=== PATIENT | male | born 1945 | race Caucasian/White ===

== ENCOUNTER 2020-04-14 09:54 | Outpatient (REF) | payer SELFPAY ==
[2020-04-14 11:40] LABS: Estimated Average Glucose 126 mg/dL
[2020-04-14 12:11] LABS: Anion Gap 16 (12-20); Blood Urea Nitrogen 14 mg/dL (9-16); Carbon Dioxide 25 mmol/L (22-29); Chloride 103 mmol/L (96-108); Cholesterol 215 mg/dL; Estimated Glomerular Filt Rate > 60; Glucose Fasting 93 mg/dL (60-99); HDL Cholesterol 86 mg/dL; LDL Cholesterol Calculated 110 mg/dl; Potassium 4.1 mmol/L (3.3-5.1); Sodium 140 mmol/L (135-145); Triglycerides 98 mg/dL
== END 2020-04-14 09:55 | disposition home or self-care (01) ==
LOC: HO.HMGCLDS 09:54
PROVIDERS: PCP Internal Medicine; Visit Provider Internal Medicine
DX: I10 Essential (primary) hypertension (principal); R73.01 Impaired fasting glucose
CPT/HCPCS: 36415; 80048; 80061; 83036

== ENCOUNTER 2021-02-18 12:46 | Outpatient (REF) | payer SELFPAY ==
[2021-02-18 14:43] LABS: MANUAL DIFF FLAG NO
[2021-02-18 14:45] LABS: White Blood Count 7.3 X10*3/uL (4.8-10.8)
[2021-02-18 14:46] LABS: Basophils Percent Auto 0.4 % (0-2); Eosinophils Absolute Auto 0.1 X10*3/uL (0.0-0.4); Eosinophils Percent Auto 1.8 % (0-4); Hematocrit 52.4 % (42.0-52.0); Hemoglobin 17.2 g/dl (14.0-18.0); Imm Gran Abs Auto 0.02 X10*3/uL (0.00-0.03); Imm Gran Pct Auto 0.3 % (0.0-0.4); Lymphocytes Absolute Auto 1.9 X10*3/uL (1.2-4.9); Lymphocytes Percent Auto 26.4 % (20-40); Mean Corpuscular HGB Conc 32.8 g/dl (31.0-36.0); Mean Corpuscular Volume 100.4 fL (80.0-98.0); Mean Platelet Volume 10.4 fL (9.4-12.4); Monocytes Absolute Auto 0.5 X10*3/uL (0.1-1.2); Monocytes Percent Auto 6.6 % (2-11); Neutrophils Absolute Auto 4.7 x10*3/uL (2.0-8.3); Neutrophils Percent Auto 64.5 % (45-73); Platelet Count 163 X10*3/uL (160-400); Red Blood Count 5.22 X10*6/uL (4.60-5.80); Red Cell Distribution Width 13.7 % (11.0-16.0)
[2021-02-18 15:21] LABS: Alanine Aminotransferase 25 U/L (0-40); Albumin Level 4.4 g/dL (3.5-5.0); Alkaline Phosphatase 48 U/L (39-117); Anion Gap 16 (12-20); Aspartate Amino Transferase 20 U/L (5-37); Bilirubin Total 1.2 mg/dL (0.0-1.0); Blood Urea Nitrogen 11 mg/dL (9-16); Calcium 9.7 mg/dL (8.4-10.2); Carbon Dioxide 26 mmol/L (22-29); Chloride 103 mmol/L (96-108); Cholesterol 223 mg/dL; Estimated Glomerular Filt Rate > 60; Glucose Fasting 125 mg/dL (60-99); HDL Cholesterol 91 mg/dL; LDL Cholesterol Calculated 115 mg/dl; Potassium 3.8 mmol/L (3.3-5.1); Sodium 141 mmol/L (135-145); Total Protein 7.8 g/dL (6.5-8.0); Triglycerides 89 mg/dL
[2021-02-19 11:52] LABS: Free Prostate Spec Ag 1.9 ng/mL; Percent Free Prostate Spec Ag 38 % (calc) (>25)
== END 2021-02-18 12:47 | disposition home or self-care (01) ==
LOC: HO.HMGCLDS 12:46
PROVIDERS: PCP Internal Medicine; Visit Provider Internal Medicine
DX: Z12.5 Encounter for screening for malignant neoplasm of prostate (principal); F10.10 Alcohol abuse, uncomplicated; I10 Essential (primary) hypertension; J44.9 Chronic obstructive pulmonary disease, unspecified; R35.0 Frequency of micturition
CPT/HCPCS: 36415; 80053; 80061; 84153; 84154; 85025

== ENCOUNTER 2021-08-19 09:10 | Outpatient (REF) | payer SELFPAY ==
[2021-08-19 11:46] LABS: Alanine Aminotransferase 17 U/L (0-40); Anion Gap 13 (12-20); Aspartate Amino Transferase 16 U/L (5-37); Blood Urea Nitrogen 12 mg/dL (9-16); Calcium 9.1 mg/dL (8.4-10.2); Carbon Dioxide 29 mmol/L (22-29); Chloride 101 mmol/L (96-108); Estimated Glomerular Filt Rate > 60; Glucose Fasting 118 mg/dL (60-99); Potassium 4.3 mmol/L (3.3-5.1); Sodium 139 mmol/L (135-145)
== END 2021-08-19 09:11 | disposition home or self-care (01) ==
LOC: HO.HMGCLDS 09:10
PROVIDERS: PCP Internal Medicine; Visit Provider Internal Medicine
DX: I10 Essential (primary) hypertension (principal); J44.9 Chronic obstructive pulmonary disease, unspecified; F10.10 Alcohol abuse, uncomplicated
CPT/HCPCS: 36415; 80048; 84450; 84460

== ENCOUNTER 2022-02-25 07:18 | Outpatient (REF) | payer SELFPAY ==
[2022-02-25 11:51] LABS: Estimated Average Glucose 114 mg/dL; Hemoglobin A1c % 5.6 %
[2022-02-25 12:10] LABS: Alanine Aminotransferase 14 U/L (0-40); Anion Gap 12 (12-20); Aspartate Amino Transferase 14 U/L (5-37); Blood Urea Nitrogen 11 mg/dL (9-16); Calcium 9.2 mg/dL (8.4-10.2); Carbon Dioxide 30 mmol/L (22-29); Chloride 100 mmol/L (96-108); Cholesterol 190 mg/dL; Estimated Glomerular Filt Rate > 60; Glucose Fasting 109 mg/dL (60-99); HDL Cholesterol 85 mg/dL; LDL Cholesterol Calculated 86 mg/dl; Potassium 4.1 mmol/L (3.3-5.1); Sodium 138 mmol/L (135-145); Triglycerides 97 mg/dL
[2022-02-25 12:17] LABS: Vitamin D 25-OH Total 7.4 ng/mL (>30)
[2022-02-25 12:40] LABS: Folate 8.8 ng/mL (> or = 4.0); Vitamin B12 272 pg/mL (200-900)
== END 2022-02-25 07:19 | disposition home or self-care (01) ==
LOC: HO.HMGCLDS 07:18
PROVIDERS: PCP Internal Medicine; Visit Provider Internal Medicine
DX: D75.89 Other specified diseases of blood and blood-forming organs (principal); F10.10 Alcohol abuse, uncomplicated; J44.9 Chronic obstructive pulmonary disease, unspecified; I10 Essential (primary) hypertension
CPT/HCPCS: 36415; 80048; 80061; 82306; 82607; 82746; 83036; 84450; 84460

== ENCOUNTER 2023-02-24 09:19 | Outpatient (REF) | payer SELFPAY ==
[2023-02-24 11:20] LABS: MANUAL DIFF FLAG NO
[2023-02-24 11:28] LABS: Basophils Percent Auto 0.4 % (0-2); Eosinophils Absolute Auto 0.3 X10*3/uL (0.0-0.4); Eosinophils Percent Auto 3.9 % (0-4); Hematocrit 45.8 % (42.0-52.0); Hemoglobin 15.3 g/dl (14.0-18.0); Imm Gran Abs Auto 0.02 X10*3/uL (0.00-0.03); Imm Gran Pct Auto 0.3 % (0.0-0.4); Lymphocytes Absolute Auto 2.1 X10*3/uL (1.2-4.9); Mean Corpuscular HGB Conc 33.4 g/dl (31.0-36.0); Mean Corpuscular Hemoglobin 32.7 pg (27.0-33.0); Mean Corpuscular Volume 97.9 fL (80.0-98.0); Mean Platelet Volume 9.7 fL (9.4-12.4); Monocytes Absolute Auto 0.5 X10*3/uL (0.1-1.2); Monocytes Percent Auto 7.6 % (2-11); Neutrophils Absolute Auto 3.9 x10*3/uL (2.0-8.3); Neutrophils Percent Auto 56.8 % (45-73); Platelet Count 213 X10*3/uL (160-400); Red Blood Count 4.68 X10*6/uL (4.60-5.80); Red Cell Distribution Width 13.3 % (11.0-16.0); White Blood Count 6.9 X10*3/uL (4.8-10.8)
[2023-02-24 11:47] LABS: Alanine Aminotransferase 11 U/L (0-40); Anion Gap 13 (12-20); Aspartate Amino Transferase 16 U/L (5-37); Blood Urea Nitrogen 16 mg/dL (9-16); Calcium 9.6 mg/dL (8.4-10.2); Carbon Dioxide 31 mmol/L (22-29); Chloride 101 mmol/L (96-108); Cholesterol 208 mg/dL (<200); Estimated Glomerular Filt Rate 47; Glucose Fasting 110 mg/dL (60-99); HDL Cholesterol 95 mg/dL (>40); LDL Cholesterol Calculated 93 mg/dL (<100); Potassium 4.1 mmol/L (3.3-5.1); Sodium 141 mmol/L (135-145); Triglycerides 100 mg/dL (<150)
[2023-02-24 12:03] LABS: Vitamin D 25-OH Total 41.3 ng/mL (>30)
== END 2023-02-24 09:20 | disposition home or self-care (01) ==
LOC: HO.HMGCLDS 09:19
PROVIDERS: PCP Internal Medicine; Visit Provider Internal Medicine
DX: Z12.5 Encounter for screening for malignant neoplasm of prostate (principal); E55.9 Vitamin D deficiency, unspecified; D75.89 Other specified diseases of blood and blood-forming organs; I10 Essential (primary) hypertension; J44.9 Chronic obstructive pulmonary disease, unspecified; R97.20 Elevated prostate specific antigen [PSA]
CPT/HCPCS: 36415; 80048; 80061; 82306; 82607; 82746; 83036; 84153; 84450; 84460; 85025

== ENCOUNTER 2023-03-02 11:51 | Outpatient (AMB) | payer SELFPAY ==
[2023-03-02 12:17] VITALS: BP 128/82; PULSE 96; O2SAT 96; BMI 22.6
--- NOTE | 2023-03-02 12:17 | A.OFFPC_ITS ---
Vital Signs 03/02/23 12:17 Height 5 ft 9 in Weight 153 lb 4 oz BMI 22.6 BP 128/82 Blood Pressure Location Rt brachial Position Sitting Pulse 96 Pulse Source Pulse Oximeter Pulse Oximetry (%) 96 Oxygen Delivery Method Room Air Intake Visit Reasons: 1 yr follow up Intake Note: Pt is here to follow up for lab results Allergies pollen Adverse Reaction (Uncoded 03/02/23 12:29) Sneezing Medication List - Last Reconciled 03/02/23 by Shannan Noe MD albuterol sulfate 90 mcg/actuation (ProAir RespiClick) 2 inhalations inhalation Q6H PRN aspirin (Adult Low Dose Aspirin) 81 mg PO DAILY budesonide-formoterol 160-4.5 mcg/actuation (Symbicort) 1 puff inhalation ONCE [cannabis orally; ] lisinopril 20 mg PO DAILY nicotine (polacrilex) (Nicorette) 4 mg buccal Q2H Tobacco use date assessed: 03/02/23 Fall risk assessment: 2 + Falls in past year (5) Last assessed Fall Risk: 03/02/23 Dental Screening Dental Screen Date: 03/02/23 Did you have a dental visit in the last 12 months?: No Did you have a dental problem in the last 6 months where you did not have access to dental care?: No Was dental information given to patient?: No HPI 1 yr follow up HPI Details 77-year-old male with hypertension, COPD , here today for follow-up. He is currently taking lisinopril 20 mg daily with blood pressure stable controlled on present treatment. He is also on Symbicort for his COPD . Patient's continues to refuse all vaccination offered, and declines any colon cancer screening. He has had several falls this past year, first when he was weed whacking and tripped on an extension cord, when he slipped on his porch stairs when it was raining, the other when he was on his yardd and stepped on uneven ground, and while he was inside the house and turned quickly and lost his balance. He drinks alcoholic beverages on a regular basis usually drinks 3 rosales [place] with 5% alcohol each, or 3 beer or 1 glass of zinfandel with his dinner. Admits to not drinking water much, and sometimes misses his meals. Had recent labs done which showed normal lipids, liver enzymes, vitamin-D, vitamin B12, folic acid level, and CBC, but serum creatinine elevated FOR[facility]LY [facility], [facility] Medical History (Updated 03/08/23 @ 15:58 by Shannan Noe MD) Frequent falls Elevated serum creatinine Right bundle branch block (RBBB) determined by electrocardiography Vitamin D deficiency Hx of smoking History of alcohol abuse Macrocytosis without anemia Elevated PSA COVID-19 vaccination refused Immunization refused Colonoscopy refused COPD (chronic obstructive pulmonary disease) Essential hypertension Surgical History Status post herniorrhaphy History of ankle surgery Family History Father HTN (hypertension) Diabetes mellitus with neuropathy Mother No problems noted. Sister No problems noted. Social History Housing: House Alcohol intake: current Alcohol intake frequency: 0-2 drinks per day Alcohol type: beer Patient Tobacco Use Status: Former Tobacco user Years Smoked: 40 yrs e-Cigarette/Vaping Use: Never Used Substance Use Type: Marijuana service: No Current occupational status: retired Cognitive needs: No Hearing needs: No Vision needs: Yes Questionnaire PHQ-9 Over the last 2 weeks, how often have you been bothered by any of the following problems? 1. Little interest or pleasure in doing things: not at all 2. Feeling down, depressed, or hopeless: not at all 3. Trouble falling or staying asleep, or sleeping too much: not at all 4. Feeling tired or having little energy: not at all 5. Poor appetite or overeating: several days 6. Feeling bad about yourself - or that you are a failure or have let yourself or your family down: not at all 7. Trouble concentrating on things, such as reading the newspaper or watching television: not at all 8. Moving or speaking so slowly that other people could have noticed. Or the op posite - being so fidgety or restless that you have been moving around a lot more than usual: not at all 9. Thoughts that you would be better off or of hurting yourself in some way: not at all Total score: 1 Depression Screening Interpretation: Negative Depression Screening Done: Yes [id number] - PHQ-9 Billing: Yes Source: Developed by Drs. Carroll Silverman, Hanane Choudhary, Te Stauffer and colleagues, with an educational oscar from [employer]. Thrive Questionnaire Date Thrive assessed: 03/02/23 I am a: Patient What is your living situation today?: I have a steady place to live Within the past 12 months, did the food you bought not last and you didn't have the money to get more?: Never true Within the past 12 months, did you worry whether your food would run out before you got money to buy more?: Never true Do you have trouble paying for medicines?: No Do you have trouble getting transportation to medical appointments?: No Do you have trouble paying your heating and electricity bill?: No Do you have trouble taking care of your child, family member or friend?: No Do you have trouble with day-to-day activities such as bathing, preparing meals, shopping, managing finances, etc.?: No Are you currently unemployed and looking for a job?: No Are you interested in more education?: No AUDIT C Alcohol Use Questionnaire (AUDIT-C) 1. How often do you have a drink containing alcohol?: 4 or more times a week 2. How many drinks containing alcohol do you have on a typical day when you are drinking?: 3 or 4 3. How often do you have six or more drinks on one occasion?: Never Total Score: 5 Score Reviewed/Action Taken: Yes (Patient advised strongly to cut back or stop drinking alcoholic beverage) ROXANA-7 AMB Questionnaire ROXANA-7 Date ROXANA - 7 assessed: 03/02/23 Feeling nervous, anxious, or on edge: 0 = Not at all Not being able to stop or control worryin = Not at all Worrying too much about different things: 0 = Not at all Trouble relaxin = Not at all Being so restless that it is hard to sit still: 0 = Not at all Becoming easily annoyed or irritable: 0 = Not at all Feeling afraid as if something awful might happen: 0 = Not at all Total ROXANA-7 score (0-4 normal; 5-9 mild; 10-14 moderate; 15-21 severe): 0 Source: Developed by Hanane HadleyW. Kenrick, Te Stauffer and colleagues, with an educational oscar from [employer]. ROXANA-7 Assessment Billing ROXANA-7 Assessment Tool: ROXANA-7 Assessment 61174 Review of Systems Const Denies difficulty sleeping, Denies fatigue, Denies fever(s), Denies headache(s), Denies lethargy and Denies malaise Eyes Reports blurry vision ENT Denies dizziness, Denies headache(s), Denies nasal congestion, Denies post nasal drip and Denies sinus pain Card Denies chest pain, Denies rapid heart rate, Denies irregular heart rhythm, Denies lightheadedness and Denies dyspnea on exertion Resp Denies cough and Denies dyspnea on exertion GI Denies abdominal pain, Denies melena, Denies bloating, Denies change in bowel habits, Denies heartburn and Denies vomiting Denies hematuria, Denies difficulty urinating, Denies dysuria, Denies urinary hesitancy and Denies urinary incontinence Musc Details: nocturnal leg cramps Neuro Denies dizziness and Denies headache(s) Psych Reports no additional complaints Endo Denies fatigue Adams/Lymph Reports no additional complaints Aller/Immun Reports no additional complaints Physical exam (Primary Care) Vital Signs: Last Vital Signs Pulse 96 03/02/23 12:17 BP 128/82 03/02/23 12:17 Pulse Ox 96 03/02/23 12:17 Oxygen Delivery Method Room Air 03/02/23 12:17 BMI result Body Mass Index 22.6 Tobacco/Smoking Status: Tobacco use Status Tobacco use date assessed 03/02/23 03/02/23 12:24 Patient Tobacco Use Status Former Tobacco user 03/02/23 12:24 e-Cigarette/Vaping Use Never Used 03/02/23 12:24 Depression Screening Interpretation: Negative Thrive Assessment: Date of Thrive Assessment Date Thrive assessed 03/02/21 03/02/23 12:24 Const Other: Alert oriented x3, no acute cardiorespiratory distress noted Orientation/consciousness: patient oriented x3 HENMT Head: Yes normocephalic Ears: hearing grossly normal bilaterally General nose exam: Normal external nose present and No nasal discharge present Face and sinus: Yes sinuses nontender and Yes face symmetric Mouth: Normal oral and palatal mucosa present and moist mucous membranes Eyes General: appearance normal, both eyes and all related structures Neck Neck: Yes full ROM, Yes no lymphadenopathy, Yes no meningeal signs and Yes supple Resp Effort & Inspection: normal respiratory effort and able to speak in complete sentences Auscultation: clear to auscultation bilaterally Cardio Other: S1-S2 present regular rate and rhythm GI Inspection: Yes normal to inspection Palpation (GI): Soft to palpation, nontender, no guarding and no masses Auscultation: normal bowel sounds Skin Other: Dry skin Neuro General: patient oriented x3, gait normal, moves all extremities, Normal light touch and pain sensation, no meningeal signs, no focal motor deficits and CN's II-XI intact bilaterally Extrem General: Yes full ROM, Yes no joint enlargement, Yes no calf tenderness and Yes normal gait Psych Appearance: disheveled Mental Status: mental status grossly normal Speech and movement: Normal speech and movement present Affect: normal affect Attitude: cooperative Thought process: Normal thought process present Results Reviewed Results Reviewed: Name: Tavares Ahmadi Age/Sex: 77/M : 1945 Unit#: [id number] Attend Dr: Shannan Noe MD Re02/24/23 Status: DEP REF Location: [facility] Disch: SPEC : [id number] JAKE: 02/24/23 STATUS: COMP REQ : [id number] RECD: 02/24/23-[address]: Shannan Noe MD COMP: 02/24/23 ENTERED: 02/24/[address] [facility] DR: ORDERED: CBC Auto Diff Test Result Flag Reference Site WBC 6.9 4.8-10.8 X10*3/uL RBC 4.68 4.60-5.80 X10*6/uL HGB 15.3 14.0-18.0 g/dl HCT 45.8 42.0-52.0 % MCV 97.9 80.0-98.0 fL MCH 32.7 27.0-33.0 pg MCHC 33.4 31.0-36.0 g/dl RDW 13.3 11.0-16.0 % PLT 213 # 160-400 X10*3/uL MPV 9.7 9.4-12.4 fL Neut Pct Auto 56.8 45-73 % ImGran Pct Auto 0.3 0.0-0.4 % Lymp Pct Auto 31.0 20-40 % [place] Pct Auto 7.6 2-11 % Eos Pct Auto 3.9 0-4 % Baso Pct Auto 0.4 0-2 % NRBC Pct Auto 0.0 0.0-0.2 /100WBC ANC Neut Abs # 3.9 2.0-8.3 x10*3/uL ImGran Abs Auto 0.02 0.00-0.03 X10*3/uL Lymph Abs Auto 2.1 1.2-4.9 X10*3/uL [place] Abs Auto 0.5 0.1-1.2 X10*3/uL Eos Abs Auto 0.3 0.0-0.4 X10*3/uL Baso Abs Auto 0.0 0.0-0.2 X10*3/uL NRBC Abs Auto 0.000 0.0-0.012 X10*3/uL RUN: 03/02/23 1226 PAGE 1 [facility] [address] [place] [id number] Personnel Records Clerk: Ernesto Moffett M.D. Specimen Inquiry Name: Tavares Ahmadi Age/Sex: 77/M : 1945 Unit#: [id number] Attend Dr: Shannan Noe MD Re02/24/23 Status: DEP REF Location: [facility] Disch: SPEC : [id number] JAKE: 02/24/23 STATUS: COMP REQ : [id number] RECD: 02/24/[address]: Shannan Noe MD COMP: 02/24/23 ENTERED: 02/24/[address]: ORDERED: Met Prof Fast, AST, ALT, Lipid Panel, Vitamin D 25-OH Test Result Flag Reference Site Sodium 141 135-145 mmol/L Potassium 4.1 3.3-5.1 mmol/L CL 101 96-108 mmol/L CO2 31 H 22-29 mmol/L Gap 13 12-20 BUN 16 9-16 mg/dL Creat 1.46 H 0.5-1.4 mg/dL EGFR 47 NOTE: For -Serbian individuals, multiply the result by 1.210. Chronic Kidney Disease: Estimated GFR < 60 mL/min/1.73m2 Severe Kidney Disease: Estimated GFR < 15 mL/min/1.73m2 FBS 110 H 60-99 mg/dL A fasting glucose from 100-125 mg/dl is considered impaired (pre-diabetes). CA 9.6 8.4-10.2 mg/dL AST (GOT) 16 5-37 U/L ALT (GPT) 11 0-40 U/L Triglyceride 100 <150 mg/dL Desirable Triglyceride: less than 150 mg/dL Borderline High Triglyceride 150-199 mg/dL High Triglyceride: 200-499 mg/dL Very High Triglyceride: greater than or equal to 5OO mg/dL Cholesterol 208 H <200 mg/dL Desirable Cholesterol: less than 200 mg/dL Borderline High Cholesterol: 200-239 mg/dL High Cholesterol: greater than 239 mg/dL LDL Calculated 93 <100 mg/dL Desirable LDL: less than 100 mg/dL Near Optimal/Above Optimal LDL: 110-129 mg/dL Borderline High LDL: 130-159 mg/dL High LDL: 160-189 mg/dL Very High LDL: greater than or equal to 190 mg/dL HDL 95 >40 mg/dL Desirable HDL: greater than 40 mg/dL Note: This HDL assay may give artificially low results in patients with liver disease. Vit D 25-OH Tot 41.3 >30 ng/mL Health Based Reference Values* < 20 ng/mL Deficient 20-30 ng/mL Insufficient > 30 ng/mL Sufficient Laboratory Tests 02/24/23 09:25 Estimat Average Glucose 120 Hemoglobin A1c % 5.8 Laboratory Tests 02/24/23 09:25 Total PSA 2.59 Vitamin B12 278 Folate 7.8 Assessment and Plan Assessment & Plan (1) Essential hypertension: Code(s): I10 - Essential (primary) hypertension Plan: Blood pressure at goal of less than 130/80. Continue with 20 mg lisinopril daily. Reinforced importance of following a low sodium diet, getting regular exercise, and lowering stress levels. Strongly advised to cut back on his alcohol intake or stop drinking altogether (2) Right bundle branch block (RBBB) determined by electrocardiography: Code(s): I45.10 - Unspecified right bundle-branch block Plan: Referred to cardiology for further evaluation especially with history of frequent fall (3) Elevated serum creatinine: Code(s): R79.89 - Other specified abnormal findings of blood chemistry Plan: Nephrology consult ordered (4) COPD (chronic obstructive pulmonary disease): Code(s): J44.9 - Chronic obstructive pulmonary disease, unspecified Plan: Continue Symbicort, refused all vaccinations (5) Immunization refused: Comment: for flu , pneumonia vaccine Code(s): Z28.21 - Immunization not carried out because of patient refusal (6) Frequent falls: Code(s): R29.6 - Repeated falls Plan: Reviewed recent fasting lab results, and EKG results. Cardiology consult ordered Orders: Orders AMB EKG-In Office 03/02/23 I10 - Essential (primary) hypertension, Z91.81 - History of falling Referrals Nephrology Referral I10 - Essential (primary) hypertension, R79.89 - Other specified abnormal findings of blood chemistry Cardiology Referral I10 - Essential (primary) hypertension, I45.10 - Unspecified right bundle-branch block, R29.6 - Repeated falls Review Patient declined Colonoscopy: 03/02/23 Patient declined Pneumococcal Vaccine: 03/02/23 Flu Vaccine not done: patient reason Declined TDap/Td: 03/02/23 Coding Level of Care Code Est Pt Level 4 (70529) Diagnoses Essential hypertension I10 Right bundle branch block (RBBB) determined by electrocardiography I45.10 Elevated serum creatinine R79.89 COPD (chronic obstructive pulmonary disease) J44.9 Immunization refused Z28.21 Frequent falls R29.6 Additional Codes ROXANA-7 Assessment Billing - ROXANA-7 Assessment Tool: ROXANA-7 Assessment 39561 ([id number])
== END 2023-03-02 13:06 | disposition home or self-care (01) ==
PROVIDERS: Visit Provider Internal Medicine
DX: I10 Essential (primary) hypertension (principal); I45.10 Unspecified right bundle-branch block; R79.89 Other specified abnormal findings of blood chemistry; J44.9 Chronic obstructive pulmonary disease, unspecified; Z28.21 Immunization not carried out because of patient refusal; R29.6 Repeated falls
CPT/HCPCS: 99214

== ENCOUNTER 2023-03-22 11:42 | Outpatient (AMB) | payer SELFPAY ==
[2023-03-22 11:43] VITALS: BP 132/74; BMI 22.3
--- NOTE | 2023-03-22 11:43 | HO.NEPHOV_ITS ---
HPI HPI Comments History of Present Illness Details Elderly man with a h/o HTN referred for Elevated serum creatinine In Feb 2022, Creatinine was 1.1 and currently at 1.46 with eGFR of 47 ml/mt He has been on Lisinopril 20 mg QD h/o Significant alcohol intake for many years. Stopped about 20 days ago h/o Heavy smoking for 40 years; Quit 15 yrs ago DEnies any specific complaints today [facility] Medical History (Updated 03/22/23 @ 11:56 by Brad Jain MD) Frequent falls Elevated serum creatinine Right bundle branch block (RBBB) determined by electrocardiography Vitamin D deficiency Hx of smoking History of alcohol abuse Macrocytosis without anemia Elevated PSA COVID-19 vaccination refused Immunization refused Colonoscopy refused COPD (chronic obstructive pulmonary disease) Essential hypertension Surgical History Status post herniorrhaphy History of ankle surgery Family History Father HTN (hypertension) Diabetes mellitus with neuropathy Mother No problems noted. Sister No problems noted. Social History Housing: House Alcohol intake: current Alcohol intake frequency: 0-2 drinks per day Alcohol type: beer Patient Tobacco Use Status: Former Tobacco user Years Smoked: 40 yrs e-Cigarette/Vaping Use: Never Used Substance Use Type: Marijuana service: No Current occupational status: retired Cognitive needs: No Hearing needs: No Vision needs: Yes Vital Signs 03/22/23 11:43 Height 5 ft 9 in Weight 151 lb BMI 22.3 BP 132/74 Blood Pressure Location Lt brachial Position Sitting Physical Exam Vital Signs: Last Vital Signs BP 132/74 03/22/23 11:43 BMI result Body Mass Index 22.3 Const General: comfortable Nutritional Appearance: well nourished Orientation/consciousness: patient oriented x3 HEENT Head: No normal to inspection Mouth: moist mucous membranes Neck Neck: Yes supple and Yes no JVD Resp Auscultation: clear to auscultation bilaterally, no rales and rub present Cardio Jugular venous distension: no JVD Palpation: no palpable S3 and no palpable S4 Heart sounds: no rubs GI Palpation (GI): Soft to palpation and nontender Percussion: No Fluid wave present General: Yes no CVA tenderness Back/Spine/Pelvis Back: no CVA tenderness Thoracic/Lumbar Spine: kyphosis Skin General skin exam: no rashes or lesions noted and other (Acro cyanosis of right LITTLE Finger) Neuro General: patient oriented x3 Extrem General: Yes no pedal edema and No clubbing Assessment & Plan Assessment & Plan (1) CKD (chronic kidney disease) stage 3, GFR 30-59 ml/min: Code(s): N18.30 - Chronic kidney disease, stage 3 unspecified (2) Essential hypertension: Code(s): I10 - Essential (primary) hypertension Plan Elderly man with elevated serum creatinine It is unclear if he had CKD or HIREN At this time based on the availabel lab data NO urine studies available. DDx includes prerenal causes including volume depletion/hypoperfusion Post renal causes - obstructive uropathy needes to be ruled out Intrinsic renal disease needs to be rule out as well Work up as out lined below including renal sonogram and urine studies If he has significant proteinuria/hematuria, will proceed with further serological investigations In the mean time Increase PO fludi intake Low salt diet Avoid nephrotoxins including NSAIDS Maintain BP < 130/80 and avoid hypotension Orders: Orders Complete Blood Count Auto Diff 3 Weeks I10 - Essential (primary) hypertension, N18.30 - Chronic kidney disease, stage 3 unspecified Creatinine Urine 3 Weeks I10 - Essential (primary) hypertension, N18.30 - Chronic kidney disease, stage 3 unspecified Total Protein Urine Random 3 Weeks I10 - Essential (primary) hypertension, N18.30 - Chronic kidney disease, stage 3 unspecified Comprehensive Met. Panel 3 Weeks I10 - Essential (primary) hypertension, N18.30 - Chronic kidney disease, stage 3 unspecified UA and rflx microscopic 3 Weeks I10 - Essential (primary) hypertension, N18.30 - Chronic kidney disease, stage 3 unspecified Uric Acid 3 Weeks I10 - Essential (primary) hypertension, N18.30 - Chronic kidney disease, stage 3 unspecified Parathyroid Hormone Intact 3 Weeks I10 - Essential (primary) hypertension, N18.30 - Chronic kidney disease, stage 3 unspecified US renal BI 3 Weeks I10 - Essential (primary) hypertension, N18.30 - Chronic kidney disease, stage 3 unspecified Coding Level of Care Code New Pt Level 4 (12225) Diagnoses CKD (chronic kidney disease) stage 3, GFR 30-59 ml/min N18.30 Essential hypertension I10 Results Reviewed Nephrology Results: Hgb 15.3 g/dl (14.0-18.0) 02/24/23 WBC 6.9 X10*3/uL (4.8-10.8) 02/24/23 Plt Count 213 X10*3/uL (160-400) 02/24/23 Sodium 141 mmol/L (135-145) 02/24/23 Potassium 4.1 mmol/L (3.3-5.1) 02/24/23 Chloride 101 mmol/L (96-108) 02/24/23 Carbon Dioxide 31 mmol/L (22-29) H 02/24/23 BUN 16 mg/dL (9-16) 02/24/23 Creatinine 1.46 mg/dL (0.5-1.4) H 02/24/23 Calcium 9.6 mg/dL (8.4-10.2) 02/24/23
== END 2023-03-22 12:06 | disposition home or self-care (01) ==
PROVIDERS: PCP Internal Medicine; Visit Provider Internal Medicine Hypertension Specialist
DX: N18.30 Chronic kidney disease, stage 3 unspecified (principal); I10 Essential (primary) hypertension
CPT/HCPCS: 99204

== ENCOUNTER → 2023-03-22 11:42 | Outpatient (BNVA) | payer SELFPAY | PROVIDERS: PCP Internal Medicine; Visit Provider Internal Medicine Hypertension Specialist | DX: I12.9 Hypertensive chronic kidney disease with stage 1 through stage 4 chronic kidney disease, or unspecified chronic kidney disease (principal); N18.30 Chronic kidney disease, stage 3 unspecified; Z87.891 Personal history of nicotine dependence | CPT/HCPCS: 99202 ==

== ENCOUNTER 2023-04-11 10:18 | Outpatient (REF) | payer SELFPAY ==
[2023-04-11 13:40] LABS: MANUAL DIFF FLAG NO
[2023-04-11 13:50] LABS: Basophils Percent Auto 0.5 % (0-2); Eosinophils Absolute Auto 0.4 X10*3/uL (0.0-0.4); Eosinophils Percent Auto 4.6 % (0-4); Hematocrit 40.7 % (42.0-52.0); Hemoglobin 13.3 g/dl (14.0-18.0); Imm Gran Abs Auto 0.03 X10*3/uL (0.00-0.03); Imm Gran Pct Auto 0.4 % (0.0-0.4); Lymphocytes Percent Auto 24.4 % (20-40); Mean Corpuscular HGB Conc 32.7 g/dl (31.0-36.0); Mean Corpuscular Volume 94.9 fL (80.0-98.0); Mean Platelet Volume 9.9 fL (9.4-12.4); Monocytes Absolute Auto 0.8 X10*3/uL (0.1-1.2); Monocytes Percent Auto 9.5 % (2-11); Neutrophils Absolute Auto 4.9 x10*3/uL (2.0-8.3); Neutrophils Percent Auto 60.6 % (45-73); Platelet Count 191 X10*3/uL (160-400); Red Blood Count 4.29 X10*6/uL (4.60-5.80); Red Cell Distribution Width 12.8 % (11.0-16.0)
[2023-04-11 14:06] LABS: Uric Acid 5.1 mg/dL (3.4-7.0)
[2023-04-11 14:17] LABS: Appearance Urine Clear; Color Urine Dark Yellow; Glucose Urine UA Negative (Negative); Leukocyte Esterase Urine Negative (Negative); Nitrite Urine Negative (Negative); PH 5.5 (5.0-9.0); Specific Gravity - Urine >= 1.030 (1.005-1.025); UMIC TRIGGER UA YES; Urine Blood Negative (Negative); Urine Ketones Trace mg/dL (Negative); Urine Protein 30 (1+) mg/dL (Neg-Trace)
[2023-04-11 14:24] LABS: Creatinine Urine 202.41 mg/dL; Total Protein Urine Random 39 mg/dL (<12)
[2023-04-11 14:36] LABS: Bacteria Urine None Seen (None Seen); Calcium Oxalate Crystals Urine Present; Hyaline Casts Urine 0-2 /LPF (0-2); RBC Urine 0-2 /HPF (0-2); WBC Urine 0-5 /HPF (0-5)
[2023-04-11 15:23] LABS: Parathyroid Hormone Intact 39.1 pg/mL (8.7-77.1)
== END 2023-04-11 10:19 | disposition home or self-care (01) ==
LOC: HO.HMGCLDS 10:18
PROVIDERS: PCP Internal Medicine; Referring Provider Internal Medicine Hypertension Specialist; Visit Provider Internal Medicine
DX: I12.9 Hypertensive chronic kidney disease with stage 1 through stage 4 chronic kidney disease, or unspecified chronic kidney disease (principal); N18.30 Chronic kidney disease, stage 3 unspecified
CPT/HCPCS: 36415; 81001; 81003; 82570; 83970; 84156; 84550; 85025

== ENCOUNTER 2023-04-14 10:40 | Outpatient (AMB) | payer SELFPAY ==
--- NOTE | 2023-04-14 10:50 | MHC.PC.OV ---
Vital Signs 04/14/23 10:51 04/14/23 14:51 Height 5 ft 9 in Weight 148 lb BMI 21.9 BP 138/78 Blood Pressure Location Lt brachial Position Sitting Pulse 115 H 106 H Pulse Source Pulse Oximeter Palpation Pulse Oximetry (%) 96 Oxygen Delivery Method Room Air Intake Visit Reasons: anxiety Intake Note: Pt is here today c/o panic attacks and Rt grt toe pain Allergies pollen Allergy (Uncoded 04/14/23 11:20) Sneezing Medication List - Last Reconciled 04/14/23 by Shannan Noe MD albuterol sulfate 90 mcg/actuation (ProAir RespiClick) 2 inhalations inhalation Q6H PRN aspirin (Adult Low Dose Aspirin) 81 mg PO DAILY budesonide-formoterol 160-4.5 mcg/actuation (Symbicort) 1 puff inhalation ONCE [cannabis orally; ] lisinopril 20 mg PO DAILY nicotine (polacrilex) (Nicorette) 4 mg buccal Q2H Tobacco use date assessed: 04/14/23 Fall risk assessment: No Falls in past year Last assessed Fall Risk: 04/14/23 Dental Screening Dental Screen Date: 04/27/23 Did you have a dental visit in the last 12 months?: No Was dental information given to patient?: No HPI HPI Comments History of Present Illness Details 77-year-old male with history of hypertension, here today complaining of intermittent episodes of panic attacks. Patient states that he would get an acute episodes of shortness of breath and palpitation, with no accompanying chest pain, or lightheadedness, and resolves spontaneously after several minutes. This has been happening now on and off for the last several days. Denies any triggers or precipitating factors. He states that he has quit drinking alcohol, approximately 3 weeks ago, has been drinking plenty of water as instructed by his car sales consultant who he recently saw. He also complains of acute throbbing pain in his left big toe last night, which resolve spontaneously . States that he get occasional leg cramps mosty at night. [facility] Medical History History of alcohol use disorder Acquired deformity of toenail Decreased pedal pulses Leg cramps Pain of foot and toes Elevated fasting glucose Hyperlipidemia Frequent falls Elevated serum creatinine Right bundle branch block (RBBB) determined by electrocardiography Vitamin D deficiency Hx of smoking History of alcohol abuse Macrocytosis without anemia Elevated PSA COVID-19 vaccination refused Immunization refused Colonoscopy refused COPD (chronic obstructive pulmonary disease) Essential hypertension Surgical History Status post herniorrhaphy History of ankle surgery Family History Father HTN (hypertension) Diabetes mellitus with neuropathy Mother No problems noted. Sister No problems noted. Social History Housing: House Alcohol intake: current Alcohol intake frequency: 0-2 drinks per day Alcohol type: beer Patient Tobacco Use Status: Former Tobacco user Years Smoked: 40 yrs e-Cigarette/Vaping Use: Never Used Substance Use Type: Marijuana service: No Current occupational status: retired Cognitive needs: No Hearing needs: No Vision needs: Yes Questionnaire PHQ-9 Over the last 2 weeks, how often have you been bothered by any of the following problems? 1. Little interest or pleasure in doing things: not at all 2. Feeling down, depressed, or hopeless: not at all 3. Trouble falling or staying asleep, or sleeping too much: several days 4. Feeling tired or having little energy: not at all 5. Poor appetite or overeating: several days 6. Feeling bad about yourself - or that you are a failure or have let yourself or your family down: not at all 7. Trouble concentrating on things, such as reading the newspaper or watching television: not at all 8. Moving or speaking so slowly that other people could have noticed. Or the opposite - being so fidgety or restless that you have been moving around a lot more than usual: not at all 9. Thoughts that you would be better off or of hurting yourself in some way: not at all Total score: 2 Depression Screening Interpretation: Negative Depression Screening Done: Yes 71881 - PHQ-9 Billing: Yes Source: Developed by Drs. Carroll Silverman, Hanane Choudhary, Te Stauffer and colleagues, with an educational oscar from [employer]. Thrive Questionnaire Date Thrive assessed: 04/14/23 I am a: Patient What is your living situation today?: I have a steady place to live Within the past 12 months, did the food you bought not last and you didn't have the money to get more?: Never true Within the past 12 months, did you worry whether your food would run out before you got money to buy more?: Never true Do you have trouble paying for medicines?: No Do you have trouble getting transportation to medical appointments?: No Do you have trouble paying your heating and electricity bill?: No Do you have trouble taking care of your child, family member or friend?: No Do you have trouble with day-to-day activities such as bathing, preparing meals, shopping, managing finances, etc.?: No Are you currently unemployed and looking for a job?: No Are you interested in more education?: No THRIVE Score: 0 AUDIT C Alcohol Use Questionnaire (AUDIT-C) 1. How often do you have a drink containing alcohol?: Never (Quit alcoholic drinks approximately 3 weeks ago) Total Score: 0 ROXANA-7 AMB Questionnaire ROXANA-7 Date ROXANA - 7 assessed: 04/14/23 Feeling nervous, anxious, or on edge: 0 = Not at all Not being able to stop or control worryin = Not at all Worrying too much about different things: 0 = Not at all Trouble relaxin = Not at all Being so restless that it is hard to sit still: 0 = Not at all Becoming easily annoyed or irritable: 1 = Several days Feeling afraid as if something awful might happen: 0 = Not at all Total ROXANA-7 score (0-4 normal; 5-9 mild; 10-14 moderate; 15-21 severe): 1 Source: Developed by Drs. Carroll Silverman, Hanane Choudhary, Te Stauffer and colleagues, with an educational oscar from [employer]. ROXANA-7 Assessment Billing ROXANA-7 Assessment Tool: ROXANA-7 Assessment 77450 Review of Systems Const Denies fever(s), Denies headache(s), Denies lethargy and Denies malaise Eyes Reports blurry vision ENT Denies dizziness, Denies headache(s), Denies nasal congestion, Denies post nasal drip and Denies sinus pain Card Reports no additional complaints Resp Denies cough GI Denies abdominal pain, Denies melena, Denies bloating, Denies change in bowel habits, Denies heartburn and Denies vomiting Denies hematuria, Denies difficulty urinating, Denies dysuria, Denies urinary hesitancy and Denies urinary incontinence Musc Details: nocturnal leg cramps Neuro Denies dizziness and Denies headache(s) Psych Reports no additional complaints Endo Reports no additional complaints Adams/Lymph Reports no additional complaints Aller/Immun Reports no additional complaints Physical exam (Primary Care) Vital Signs: Last Vital Signs Pulse 115 H 04/14/23 10:51 BP 138/78 04/14/23 10:51 Pulse Ox 96 04/14/23 10:51 Oxygen Delivery Method Room Air 04/14/23 10:51 BMI result Body Mass Index 21.9 Tobacco/Smoking Status: Tobacco use Status Tobacco use date assessed 04/14/23 04/14/23 10:52 Patient Tobacco Use Status Former Tobacco user 04/14/23 10:51 e-Cigarette/Vaping Use Never Used 04/14/23 10:51 PHQ-9: PHQ-9 Score PHQ-9: Total score 2 04/14/23 14:47 Depression Screening Interpretation: Negative Thrive Assessment: Date of Thrive Assessment Date Thrive assessed 04/14/23 04/14/23 10:58 Const General: cooperative, no acute distress, poor hygiene and tired appearing Nutritional Appearance: average body habitus Orientation/consciousness: patient oriented x3 [facility] Head: Yes normocephalic Ears: hearing grossly normal bilaterally General nose exam: Normal external nose present Face and sinus: Yes face symmetric Mouth: Normal oral and palatal mucosa present and moist mucous membranes Eyes General: appearance normal, both eyes and all related structures Neck Neck: Yes full ROM, Yes no lymphadenopathy, Yes no meningeal signs and Yes supple Resp Effort & Inspection: normal respiratory effort and able to speak in complete sentences Auscultation: clear to auscultation bilaterally Cardio Other: S1-S2 present , tachycardic Faint dorsalis pedis pulse and posterior tibial pulse bilateral GI Inspection: Yes normal to inspection Palpation (GI): Soft to palpation, nontender, no guarding and no masses Auscultation: normal bowel sounds Skin Other: Dry skin Nails: discolored, dystrophic and yellow and thickened (both feet) Neuro General: patient oriented x3, gait normal, moves all extremities, Normal light touch and pain sensation, no meningeal signs, no focal motor deficits and CN's II-XI intact bilaterally Extrem General: Yes full ROM, Yes no joint enlargement, Yes no calf tenderness and Yes normal gait Psych Appearance: disheveled Mental Status: mental status grossly normal Speech and movement: Normal speech and movement present Affect: normal affect Attitude: cooperative Thought process: Normal thought process present Assessment and Plan Assessment & Plan (1) Pain of foot and toes: Code(s): M79.673 - Pain in unspecified foot; M79.676 - Pain in unspecified toe(s) Plan: Will check SAURABH indices (2) Leg cramps: Code(s): R25.2 - Cramp and spasm Plan: Advised to start taking magnesium tablets as needed to 50 mg per tablet once a day. Continue staying well hydrated, continued avoidance of alcohol intake (3) Decreased pedal pulses: Code(s): R09.89 - Other specified symptoms and signs involving the circulatory and respiratory systems Plan: SAURABH index ordered (4) Acquired deformity of toenail: Code(s): L60.8 - Other nail disorders Plan: Referred to podiatry for further evaluation and management (5) Acute anxiety: Code(s): F41.9 - Anxiety disorder, unspecified Plan: Trial of hydroxyzine 10 mg per tablet to take 1 tablet 3 times a day as needed for acute episodes of anxiety. Call if no improvement Orders: Orders US SAURABH complete Today M79.673 - Pain in unspecified foot, M79.676 - Pain in unspecified toe(s), R09.89 - Other specified symptoms and signs involving the circulatory and respiratory systems, R25.2 - Cramp and spasm Referrals Podiatry Referral L60.8 - Other nail disorders Medications: New hydroxyzine HCl 10 mg PO TID PRN 30 tabs 0RF itching Coding Level of Care Code Est Pt Level 4 (30381) Diagnoses Pain of foot and toes M79.673; M79.676 Leg cramps R25.2 Decreased pedal pulses R09.89 Acquired deformity of toenail L60.8 Acute anxiety F41.9 Additional Codes ROXANA-7 Assessment Billing - ROXANA-7 Assessment Tool: ROXANA-7 Assessment 24590 ([id number])
[2023-04-14 10:51] VITALS: BP 138/78; PULSE 115; O2SAT 96; BMI 21.9
[2023-04-14 14:51] VITALS: PULSE 106
== END 2023-04-14 11:58 | disposition home or self-care (01) ==
PROVIDERS: PCP Internal Medicine; Visit Provider Internal Medicine
DX: M79.672 Pain in left foot (principal); M79.675 Pain in left toe(s); R25.2 Cramp and spasm; R09.89 Other specified symptoms and signs involving the circulatory and respiratory systems; L60.8 Other nail disorders; F41.9 Anxiety disorder, unspecified
CPT/HCPCS: 99214

== ENCOUNTER 2023-04-26 11:34 | Outpatient (AMB) | payer SELFPAY ==
--- NOTE | 2023-04-26 11:40 | HO.NEPHOV ---
HPI HPI Comments History of Present Illness Details Elderly man with a h/o HTN referred for Elevated serum creatinine In Feb 2022, Creatinine was 1.1 and currently at 1.46 with eGFR of 47 ml/mt He has been on Lisinopril 20 mg QD h/o Significant alcohol intake for many years. Stopped about 20 days ago h/o Heavy smoking for 40 years; Quit 15 yrs ago DEnies any specific complaints today 04/26/23 Has some cought nad runny nose Did not go for USG and blood test [facility] Medical History History of alcohol use disorder Acquired deformity of toenail Decreased pedal pulses Leg cramps Pain of foot and toes Elevated fasting glucose Hyperlipidemia Frequent falls Elevated serum creatinine Right bundle branch block (RBBB) determined by electrocardiography Vitamin D deficiency Hx of smoking History of alcohol abuse Macrocytosis without anemia Elevated PSA COVID-19 vaccination refused Immunization refused Colonoscopy refused COPD (chronic obstructive pulmonary disease) Essential hypertension Surgical History Status post herniorrhaphy History of ankle surgery Family History Father HTN (hypertension) Diabetes mellitus with neuropathy Mother No problems noted. Sister No problems noted. Social History Housing: House Alcohol intake: current Alcohol intake frequency: 0-2 drinks per day Alcohol type: beer Patient Tobacco Use Status: Former Tobacco user Years Smoked: 40 yrs e-Cigarette/Vaping Use: Never Used Substance Use Type: Marijuana service: No Current occupational status: retired Cognitive needs: No Hearing needs: No Vision needs: Yes Vital Signs 04/26/23 11:41 Height 5 ft 9 in Weight 143 lb BMI 21.1 BP 110/58 L Blood Pressure Location Rt brachial Position Sitting Pulse 108 H Pulse Source Pulse Oximeter Pulse Oximetry (%) 94 Oxygen Delivery Method Room Air Physical Exam Vital Signs: Last Vital Signs Pulse 108 H 04/26/23 11:41 BP 110/58 L 04/26/23 11:41 Pulse Ox 94 04/26/23 11:41 Oxygen Delivery Method Room Air 04/26/23 11:41 BMI result Body Mass Index 21.1 Const General: comfortable Nutritional Appearance: well nourished Orientation/consciousness: patient oriented x3 HEENT Head: No normal to inspection Mouth: moist mucous membranes Neck Neck: Yes supple and Yes no JVD Resp Auscultation: clear to auscultation bilaterally, no rales and rub present Cardio Jugular venous distension: no JVD Palpation: no palpable S3 and no palpable S4 Heart sounds: no rubs GI Palpation (GI): Soft to palpation and nontender Percussion: No Fluid wave present General: Yes no CVA tenderness Back/Spine/Pelvis Back: no CVA tenderness Thoracic/Lumbar Spine: kyphosis Skin General skin exam: no rashes or lesions noted and other (Acro cyanosis of right LITTLE Finger) Neuro General: patient oriented x3 Extrem General: Yes no pedal edema and No clubbing Assessment & Plan Assessment & Plan (1) CKD (chronic kidney disease) stage 3, GFR 30-59 ml/min: Code(s): N18.30 - Chronic kidney disease, stage 3 unspecified (2) Essential hypertension: Code(s): I10 - Essential (primary) hypertension Plan Elderly man with elevated serum creatinine It is unclear if he had CKD or HIREN At this time based on the availabel lab data NO urine studies available. DDx includes prerenal causes including volume depletion/hypoperfusion Post renal causes - obstructive uropathy needes to be ruled out Intrinsic renal disease needs to be rule out as well Work up as out lined below including renal sonogram and urine studies If he has significant proteinuria/hematuria, will proceed with further serological investigations Increase PO fluid Low salt diet Avoid nephrotoxins including NSAIDS Maintain BP < 130/80 and avoid hypotension Orders: Orders Complete Blood Count Auto Diff Today N18.30 - Chronic kidney disease, stage 3 unspecified Parathyroid Hormone Intact Today N18.30 - Chronic kidney disease, stage 3 unspecified Creatinine Urine Today N18.30 - Chronic kidney disease, stage 3 unspecified Comprehensive Met. Panel Today N18.30 - Chronic kidney disease, stage 3 unspecified, N18.9 - Chronic kidney disease, unspecified UA and rflx microscopic Today N18.30 - Chronic kidney disease, stage 3 unspecified Sodium Urine Random 2 Weeks N18.30 - Chronic kidney disease, stage 3 unspecified, N18.9 - Chronic kidney disease, unspecified Coding Level of Care Code Est Pt Level 4 (46097) Diagnoses CKD (chronic kidney disease) stage 3, GFR 30-59 ml/min N18.30 Essential hypertension I10 Results Reviewed Nephrology Results: Hgb 13.3 g/dl (14.0-18.0) L 04/11/23 WBC 8.0 X10*3/uL (4.8-10.8) 04/11/23 Plt Count 191 X10*3/uL (160-400) 04/11/23 Sodium 141 mmol/L (135-145) 02/24/23 Potassium 4.1 mmol/L (3.3-5.1) 02/24/23 Chloride 101 mmol/L (96-108) 02/24/23 Carbon Dioxide 31 mmol/L (22-29) H 02/24/23 BUN 16 mg/dL (9-16) 02/24/23 Creatinine 1.46 mg/dL (0.5-1.4) H 02/24/23 Calcium 9.6 mg/dL (8.4-10.2) 02/24/23 PTH Intact 39.1 pg/mL (8.7-77.1) 04/11/23 Urine Protein 30 (1+) mg/dL (Neg-Trace) H 04/11/23 Urine Creatinine 202.41 mg/dL 04/11/23
[2023-04-26 11:41] VITALS: BP 110/58; PULSE 108; O2SAT 94; BMI 21.1
== END 2023-04-26 12:00 | disposition home or self-care (01) ==
PROVIDERS: PCP Internal Medicine; Visit Provider Internal Medicine Hypertension Specialist
DX: N18.30 Chronic kidney disease, stage 3 unspecified (principal); I10 Essential (primary) hypertension
CPT/HCPCS: 99214

== ENCOUNTER → 2023-04-26 11:34 | Outpatient (BNVA) | payer SELFPAY | PROVIDERS: PCP Internal Medicine; Visit Provider Internal Medicine Hypertension Specialist | DX: I12.9 Hypertensive chronic kidney disease with stage 1 through stage 4 chronic kidney disease, or unspecified chronic kidney disease (principal); N18.30 Chronic kidney disease, stage 3 unspecified | CPT/HCPCS: 99212 ==

== ENCOUNTER 2023-05-02 13:42 | Outpatient (REF) | payer SELFPAY ==
--- NOTE | ~2023-05-02 | US_ITS ---
EXAMINATION: NONINVASIVE ASSESSMENT OF THE ARTERIES OF BOTH LOWER EXTREMITIES CLINICAL INFORMATION: Pain in foot. COMPARISON: None. TECHNIQUE: Segmental ankle pulse volume recording, pressure measurement at the ankle and ankle brachial indices were obtained of the lower extremity arterial system bilaterally. This study was performed at rest only. FINDINGS: a) AT REST: 1. The ankle-brachial indices are: Right 0.84 and left 0.67. >0.97-1.25 = normal - no significant arterial disease. 0.75-0.96 = mild peripheral arterial disease. 0.5-0.74 = moderate peripheral arterial disease. <0.50 = severe peripheral arterial disease. 2. Segmental pressure at ankle: 134 mmHg on the right and 106 mmHg on the left. 3. PVR waveform at ankle: Abnormal. US/US SAURABH complete IMPRESSION: Abnormal ankle brachial indices consistent with mild peripheral arterial disease on the right and moderate peripheral arterial disease on the left.
--- NOTE | ~2023-05-02 | US_ITS ---
EXAMINATION: US RETROPERITONEAL LIMITED (RENAL ONLY) CLINICAL INFORMATION: Chronic kidney disease, stage 3 unspecified. COMPARISON: None available. TECHNIQUE: Real-time imaging of the kidneys. FINDINGS: RIGHT KIDNEY: 9.6 x 5.5 x 5.0 cm (SAG x AP x TRV). There is limited visualization of the upper pole secondary to overlying bowel gas. The kidney is normal in size, contour, and echogenicity. Renal cortical thickness is normal. No calculi or focal parenchymal lesions. No hydronephrosis. LEFT KIDNEY: 11.1 x 4.9 x 4.2 cm (SAG x AP x TRV). The kidney is normal in size, contour, and echogenicity. Renal cortical thickness is normal. No calculi or focal parenchymal lesions. No hydronephrosis. US/US renal BI IMPRESSION: Unremarkable-appearing kidneys although the right upper pole was not visualized secondary to overlying bowel gas.
== END 2023-05-02 13:43 | disposition home or self-care (01) ==
LOC: HO.US 13:42
PROVIDERS: PCP Internal Medicine; Visit Provider Internal Medicine Hypertension Specialist
DX: I12.9 Hypertensive chronic kidney disease with stage 1 through stage 4 chronic kidney disease, or unspecified chronic kidney disease (principal); N18.30 Chronic kidney disease, stage 3 unspecified; R25.2 Cramp and spasm; R09.89 Other specified symptoms and signs involving the circulatory and respiratory systems
CPT/HCPCS: 76775; 93923

== ENCOUNTER 2023-05-27 08:25 | Outpatient (REF) | payer SELFPAY ==
[2023-05-27 10:39] LABS: MANUAL DIFF FLAG NO
[2023-05-27 10:51] LABS: Basophils Absolute Auto 0.1 X10*3/uL (0.0-0.2); Basophils Percent Auto 0.7 % (0-2); Eosinophils Absolute Auto 0.6 X10*3/uL (0.0-0.4); Hemoglobin 11.4 g/dl (14.0-18.0); Imm Gran Abs Auto 0.02 X10*3/uL (0.00-0.03); Imm Gran Pct Auto 0.3 % (0.0-0.4); Lymphocytes Absolute Auto 2.6 X10*3/uL (1.2-4.9); Lymphocytes Percent Auto 38.1 % (20-40); Mean Corpuscular HGB Conc 31.7 g/dl (31.0-36.0); Mean Corpuscular Hemoglobin 30.6 pg (27.0-33.0); Mean Corpuscular Volume 96.5 fL (80.0-98.0); Mean Platelet Volume 9.3 fL (9.4-12.4); Monocytes Absolute Auto 0.4 X10*3/uL (0.1-1.2); Monocytes Percent Auto 6.4 % (2-11); Neutrophils Absolute Auto 3.2 x10*3/uL (2.0-8.3); Neutrophils Percent Auto 46.5 % (45-73); Platelet Count 285 X10*3/uL (160-400); Red Blood Count 3.73 X10*6/uL (4.60-5.80); Red Cell Distribution Width 14.2 % (11.0-16.0); White Blood Count 6.9 X10*3/uL (4.8-10.8)
[2023-05-27 11:13] LABS: Appearance Urine Clear; Color Urine Yellow; Glucose Urine UA Negative (Negative); Leukocyte Esterase Urine Trace (Negative); Nitrite Urine Negative (Negative); PH 6.5 (5.0-9.0); UMIC TRIGGER UA YES; Urine Blood Negative (Negative); Urine Ketones Negative (Negative); Urine Protein Negative (Neg-Trace)
[2023-05-27 11:15] LABS: Bacteria Urine None Seen (None Seen); Hyaline Casts Urine 0-2 /LPF (0-2); RBC Urine 0-2 /HPF (0-2); Squamous Epithelial Cell Urine 0-2 /HPF (0-2); WBC Urine 0-5 /HPF (0-5)
[2023-05-27 11:16] LABS: Parathyroid Hormone Intact 43.7 pg/mL (8.7-77.1)
[2023-05-27 11:17] LABS: Alanine Aminotransferase 11 U/L (0-40); Albumin Level 3.7 g/dL (3.5-5.0); Alkaline Phosphatase 58 U/L (39-117); Anion Gap 11 (12-20); Aspartate Amino Transferase 12 U/L (5-37); Bilirubin Total 0.3 mg/dL (0.0-1.0); Blood Urea Nitrogen 11 mg/dL (9-16); Calcium 9.3 mg/dL (8.4-10.2); Carbon Dioxide 28 mmol/L (22-29); Chloride 106 mmol/L (96-108); Estimated Glomerular Filt Rate > 60; Glucose Random 105 mg/dL (60-115); Potassium 4.8 mmol/L (3.3-5.1); Sodium 140 mmol/L (135-145); Total Protein 6.9 g/dL (6.5-8.0)
[2023-05-27 13:02] LABS: Creatinine Urine 64.91 mg/dL
== END 2023-05-27 08:26 | disposition home or self-care (01) ==
LOC: HO.HMGCLDS 08:25
PROVIDERS: PCP Internal Medicine; Visit Provider Internal Medicine Hypertension Specialist
DX: N18.30 Chronic kidney disease, stage 3 unspecified (principal)
CPT/HCPCS: 36415; 80053; 81001; 81003; 82570; 83970; 84300; 85025

== ENCOUNTER 2023-05-31 11:50 | Outpatient (AMB) | payer SELFPAY ==
--- NOTE | 2023-05-31 11:41 | HO.NEPHOV ---
HPI HPI Comments History of Present Illness Details Elderly man with a h/o HTN referred for Elevated serum creatinine In Feb 2022, Creatinine was 1.1 and currently at 1.46 with eGFR of 47 ml/mt He has been on Lisinopril 20 mg QD h/o Significant alcohol intake for many years. Stopped about 20 days ago h/o Heavy smoking for 40 years; Quit 15 yrs ago Denies any specific complaints today PFSH Medical History History of alcohol use disorder Acquired deformity of toenail Decreased pedal pulses Leg cramps Pain of foot and toes Elevated fasting glucose Hyperlipidemia Frequent falls Elevated serum creatinine Right bundle branch block (RBBB) determined by electrocardiography Vitamin D deficiency Hx of smoking History of alcohol abuse Macrocytosis without anemia Elevated PSA COVID-19 vaccination refused Immunization refused Colonoscopy refused COPD (chronic obstructive pulmonary disease) Essential hypertension Surgical History Status post herniorrhaphy History of ankle surgery Family History Father HTN (hypertension) Diabetes mellitus with neuropathy Mother No problems noted. Sister No problems noted. Social History Housing: House Alcohol intake: current Alcohol intake frequency: 0-2 drinks per day Alcohol type: beer Patient Tobacco Use Status: Former Tobacco user Years Smoked: 40 yrs e-Cigarette/Vaping Use: Never Used Substance Use Type: Marijuana service: No Current occupational status: retired Cognitive needs: No Hearing needs: No Vision needs: Yes Vital Signs 05/31/23 11:42 Height 5 ft 9 in Weight 150 lb BMI 22.1 BP 120/78 Blood Pressure Location Lt brachial Position Sitting Pulse 98 Pulse Source Pulse Oximeter Pulse Oximetry (%) 96 Oxygen Delivery Method Room Air Physical Exam Vital Signs: Last Vital Signs Pulse 98 05/31/23 11:42 BP 120/78 05/31/23 11:42 Pulse Ox 96 05/31/23 11:42 Oxygen Delivery Method Room Air 05/31/23 11:42 BMI result Body Mass Index 22.1 Const General: comfortable Nutritional Appearance: well nourished Orientation/consciousness: patient oriented x3 HEENT Head: No normal to inspection Mouth: moist mucous membranes Neck Neck: Yes supple and Yes no JVD Resp Auscultation: clear to auscultation bilaterally, no rales and rub present Cardio Jugular venous distension: no JVD Palpation: no palpable S3 and no palpable S4 Heart sounds: no rubs GI Palpation (GI): Soft to palpation and nontender Percussion: No Fluid wave present General: Yes no CVA tenderness Back/Spine/Pelvis Back: no CVA tenderness Thoracic/Lumbar Spine: kyphosis Skin General skin exam: no rashes or lesions noted and other (Acro cyanosis of right LITTLE Finger) Neuro General: patient oriented x3 Extrem General: Yes no pedal edema and No clubbing Assessment & Plan Assessment & Plan (1) CKD (chronic kidney disease) stage 3, GFR 30-59 ml/min: Code(s): N18.30 - Chronic kidney disease, stage 3 unspecified (2) Essential hypertension: Code(s): I10 - Essential (primary) hypertension Plan Elderly man with age related decline in eGFR superimposed HIREN due to volume depletion - DDx includes prerenal causes including volume depletion/hypoperfusion Resolved urine studies are unremarkable Post renal causes - No obstructive uropathy based on USG Increase PO fluid Low salt diet Avoid nephrotoxins including NSAIDS Maintain BP < 130/80 and avoid hypotension Orders: Orders Basic Metabolic Panel 6 Months N18.30 - Chronic kidney disease, stage 3 unspecified Coding Level of Care Code Est Pt Level 4 (25822) Diagnoses CKD (chronic kidney disease) stage 3, GFR 30-59 ml/min N18.30 Essential hypertension I10 Results Reviewed Nephrology Results: Hgb 11.4 g/dl (14.0-18.0) L 05/27/23 WBC 6.9 X10*3/uL (4.8-10.8) 05/27/23 Plt Count 285 X10*3/uL (160-400) 05/27/23 Sodium 140 mmol/L (135-145) 05/27/23 Potassium 4.8 mmol/L (3.3-5.1) 05/27/23 Chloride 106 mmol/L (96-108) 05/27/23 Carbon Dioxide 28 mmol/L (22-29) 05/27/23 BUN 11 mg/dL (9-16) 05/27/23 Creatinine 0.83 mg/dL (0.5-1.4) 05/27/23 Calcium 9.3 mg/dL (8.4-10.2) 05/27/23 PTH Intact 43.7 pg/mL (8.7-77.1) 05/27/23 Urine Protein Negative mg/dL (Neg-Trace) 05/27/23 Urine Creatinine 64.91 mg/dL 05/27/23 Renal US 05/02/23
[2023-05-31 11:42] VITALS: BP 120/78; PULSE 98; O2SAT 96; BMI 22.1
== END 2023-05-31 12:02 | disposition home or self-care (01) ==
PROVIDERS: PCP Internal Medicine; Visit Provider Internal Medicine Hypertension Specialist
DX: N18.30 Chronic kidney disease, stage 3 unspecified (principal); I10 Essential (primary) hypertension
CPT/HCPCS: 99214

== ENCOUNTER → 2023-05-31 11:50 | Outpatient (BNVA) | payer SELFPAY | PROVIDERS: PCP Internal Medicine; Visit Provider Internal Medicine Hypertension Specialist | DX: I12.9 Hypertensive chronic kidney disease with stage 1 through stage 4 chronic kidney disease, or unspecified chronic kidney disease (principal); N18.30 Chronic kidney disease, stage 3 unspecified; Z79.899 Other long term (current) drug therapy | CPT/HCPCS: 99212 ==

== ENCOUNTER 2023-08-31 09:41 | Outpatient (AMB) | payer SELFPAY ==
--- NOTE | 2023-08-31 09:59 | A.OFFVIS_ITS ---
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/HTN(rs) Intake Note: New patient dx rbbb and htn feeling good Security Investigator Required: No Allergies pollen Allergy (Uncoded 05/31/23 11:41) Sneezing Medication List - Last Reconciled 08/31/23 by Que Aguiar MD albuterol sulfate 90 mcg/actuation (ProAir RespiClick) 2 inhalations inhalation Q6H PRN aspirin (Adult Low Dose Aspirin) 81 mg PO DAILY budesonide-formoterol 160-4.5 mcg/actuation (Symbicort) 1 puff inhalation ONCE [cannabis orally; ] hydroxyzine HCl 10 mg PO TID PRN lisinopril 20 mg PO DAILY magnesium 500 mg PO DAILY nicotine (polacrilex) (Nicorette) 4 mg buccal Q2H HPI Comments Details: Thank you for referring [place] in cardiology consultation today for newly detected right bundle-branch block on EKG. Patient has prior history of COPD, hypertension, chronic kidney disease. Was referred here after an 1st EKG which showed right bundle-branch block. He has exertional shortness of breath especially heart humid weather when he goes out he would get short of breath. He is using inhalers for the same. He denies any exertional chest pain. Denies any orthopnea, PND, leg edema. He was also diagnose with bilateral peripheral vascular disease although they are not severely obstructive. He has been prescribed aspirin and takes baby aspirin for the same. He denies any symptoms of claudication. Denies any lightheadedness, syncope. No prolonged palpitations irregular heartbeat. [facility] Medical History History of alcohol use disorder Acquired deformity of toenail Decreased pedal pulses Leg cramps Pain of foot and toes Elevated fasting glucose Hyperlipidemia Frequent falls Elevated serum creatinine Right bundle branch block (RBBB) determined by electrocardiography Vitamin D deficiency Hx of smoking History of alcohol abuse Macrocytosis without anemia Elevated PSA COVID-19 vaccination refused Immunization refused Colonoscopy refused COPD (chronic obstructive pulmonary disease) Essential hypertension Surgical History Status post herniorrhaphy History of ankle surgery Family History Father HTN (hypertension) Diabetes mellitus with neuropathy Mother No problems noted. Sister No problems noted. Social History Housing: House Alcohol intake: current Alcohol intake frequency: 0-2 drinks per day Alcohol type: beer Patient Tobacco Use Status: Former Tobacco user Years Smoked: 40 yrs e-Cigarette/Vaping Use: Never Used Substance Use Type: Marijuana service: No Current occupational status: retired Cognitive needs: No Hearing needs: No Vision needs: Yes Review of Systems Const Denies chills, Denies daytime sleepiness, Denies fatigue, Denies fever(s), Denies frequent falls, Denies poor appetite, Denies snoring, Denies stops breathing during sleep, Denies weakness, Denies weight gain and Denies weight loss Eyes Denies loss of vision ENT Denies dizziness and Denies hearing loss Card Denies chest pain, Denies claudication, Denies leg edema, Denies lightheadedness, Denies palpitations, Denies dyspnea, Denies dyspnea on exertion and Denies orthopnea Resp Denies cough, Denies excessive phlegm production, Denies dyspnea, Denies dyspnea on exertion, Denies snoring and Denies wheezing GI Denies abdominal pain, Denies hematochezia, Denies change in bowel habits, Denies nausea and Denies vomiting Denies dysuria and Denies urinary frequency Musc Denies arthralgias, Denies muscle weakness, Denies numbness and Denies other (frequent falls) Skin/Breast Denies nail changes and Denies rash Neuro Denies Abnormal speech present, Denies dizziness, Denies frequent falls, Denies loss of vision, Denies memory loss, Denies numbness and Denies weakness Psych Denies depression and Denies memory loss Endo Denies fatigue and Denies palpitations Adams/Lymph Reports easy bruising and Reports other (anemia) Aller/Immun Denies wheezing Physical Exam Vital Signs: Last Vital Signs Pulse 92 08/31/23 10:03 BP 134/84 08/31/23 10:03 BMI result Body Mass Index 22.8 Const General: cooperative, comfortable, no acute distress, alert and awake Nutritional Appearance: average body habitus and other (Frail appearing elderly man) Orientation/consciousness: patient oriented x3 Limitations: ambulation with cane HEENT Head: Yes normocephalic and Yes atraumatic Neck Neck: Yes trachea midline, Yes supple and Yes no JVD Carotids: no bruits Resp Effort & Inspection: normal respiratory effort Auscultation: no rales, no wheezes and diminished lung sounds Cardio Jugular venous distension: no JVD Palpation: normal PMI Rate: regular rate Rhythm: regular rhythm Heart sounds: S1 normal heart sound present, S2 normal heart sound present, no click, no gallops, no murmurs and no rubs GI Auscultation: normal bowel sounds Skin General skin exam: no rashes or lesions noted Neuro General: patient oriented x3 and no focal motor deficits Speech: No Abnormal speech present Extrem General: Yes no clubbing, cyanosis or edema Psych Appearance: grossly normal Office Procedures EKG Details: EKG shows normal sinus rhythm with right bundle-branch block without any Q-waves [id number], Complete Assessment & Plan Assessment & Plan (1) Right bundle branch block (RBBB) determined by electrocardiography: Code(s): I45.10 - Unspecified right bundle-branch block Category: Medical Plan: Right bundle-branch block on EKG. We discussed pathophysiology with him about the same. Need to rule out any structural heart issues especially right-sided pathology. This was discussed. Will suggest an echocardiogram. Further treatment or workup based on the findings of the echocardiogram. Does not require any other testing. He is on aspirin therapy pad peripheral vascular disease. Blood pressure is well optimized. Encouraged to monitor blood pressure intermittently at home to provide more data points. Consider statin therapy with Crestor 10 or atorvastatin 20 mg to target goal LDL below 70 mg/dL. Will follow up in the clinic if need be. Thank you for allowing me to partake in his care Orders: Orders CA echo transthoracic complete Today I45.10 - Unspecified right bundle-branch block Coding Level of Care Code New Pt Level 3 (00044) Diagnoses Right bundle branch block (RBBB) determined by electrocardiography I45.10 CPT Codes EKG - CPT: 72442-[id number], Complete ([id number])
[2023-08-31 10:03] VITALS: BP 134/84; PULSE 92; BMI 22.8
== END 2023-08-31 11:18 | disposition home or self-care (01) ==
PROVIDERS: PCP Internal Medicine; Visit Provider Internal Medicine Cardiovascular Disease
DX: I45.10 Unspecified right bundle-branch block (principal)
CPT/HCPCS: 93010; 99203

== ENCOUNTER → 2023-08-31 09:41 | Outpatient (BNVA) | payer SELFPAY | PROVIDERS: PCP Internal Medicine; Visit Provider Internal Medicine Cardiovascular Disease | DX: I45.10 Unspecified right bundle-branch block (principal) | CPT/HCPCS: 93005; 99202 ==

== ENCOUNTER → 2023-09-12 10:39 | Outpatient (REF) | payer SELFPAY ==
--- NOTE | 2023-09-12 10:43 | CA_ITS ---
Transthoracic Echocardiogram Patient (Last, First, Middle): Tavares Ahmadi F Gender: Male Date of : 1945 Age: 78 Procedure Date: 09/12/2023 Procedure Type: Transthoracic Echocardiogram Location: OP Height: 177.8 cm Weight: 68.04 kg BSA: 1.85 m2 Heart Rate: 82 bpm BP: 142 / 80 mmHg Manager Title: DAVID Referring MD: Que Aguiar MD Symptoms: I45.10 - Unspecified right bundle-branch block Study Quality: Technically Difficult w/Contrast ECG Rhythm: Sinus Conclusions: - The left ventricular systolic function is normal. The calculated ejection fraction is 66% by biplane method. - No obvious valvular pathology seen on this study. - Technically difficult study. Findings Procedure Information Contrast agent, definity, is being given per protocol without apparent complications. The quality of the study was despite the use of contrast and endocardial definition remains poor. The study quality is limited by patients body habitus and lung artifact. Left Ventricle Normal left ventricular cavity size. The left ventricular systolic function is normal. The calculated ejection fraction is 66% by biplane method. Regional wall motion abnormalities can not be excluded due to suboptimal endocardial definition. Evidence suggests grade I (mild) diastolic dysfunction. Right Ventricle The right ventricle was not well visualized. Atria Both atria are normal in size. Aortic Valve The aortic valve was not well visualized. There is no aortic valve stenosis. There is no aortic valve regurgitation. Mitral Valve The mitral valve was not well visualized. There is no mitral valve regurgitation. There is no mitral valve stenosis. Pulmonic Valve The pulmonic valve is likely normal. Tricuspid Valve There is trace tricuspid valve regurgitation. Tricuspid regurgitation envelope is inadequate for calculation of right ventricular systolic pressure. Great Vessels The asc aorta is normal in size. Venous The inferior vena cava is normal in size and collapses greater than 50% with inspiration. Pericardium/Pleural There is no evidence of pericardial effusion. Prior Study Comparison No prior study available for comparison. Recommendations, Care & Conclusions No obvious valvular pathology seen on this study. Measurements 2D Linear Measurements LVOT Diam: 2.20 3.0+(-)1.3 cm 2D Systolic Function EF 4C: 59.60 >55% EF 2C: 68.50 >55% EF BiP: 65.60 >55% Mitral Valve MV Pk E: 0.53 MV PK A: 0.63 MV Decel Time: 217.00 E/A: 0.80 E'Lateral: 7.18 E'Medial: 5.87 E/E' Med: 9.00 E/E' Lat: 7.30 PHT: 63.00 MVA PHT: 3.49 Decel [place]: 2.43 Aortic Valve AoV Pk Kirk: 0.86 AoV Mn Kirk: 0.65 AoV VTI: 0.17 AoV Pk Grad: 3.00 Aov Mn Grad: 2.00 ERAN Cont.VTI: 2.96 LVOT LVOT Pk Kirk: 0.67 LVOT Mn Kirk: 0.46 LVOT VTI: 0.13 LVOT Pk Grad: 2.00 LVOT Mn Grad: 1.00 LVOT Diam: 2.20 LVOT Area: 3.80 Diastolic Function MV Pk E: 0.53 MV Pk A: 0.63 E/A: 0.80 E'Medial: 5.87 E/E' Med: 9.00 E' Laterial: 7.18 E/E' Lat: 7.30 Right Ventricle TVS' Kirk: 7.40 Tricuspid Valve RA Press: 3.00 Great Vessels Aorta Ao Asc: 3.00 2.1-3.4 cm Pulmonary Valve PV Pk Kirk: 0.73 Peak PV Grad: 2.00 Updated in Other Vendor System with Status of Final Sammy Schmid MD electronically signed on 09/13/2023 11:19:41 AM with status of Final
== END ==
LOC: HO.CARD 10:39
PROVIDERS: PCP Internal Medicine; Visit Provider Internal Medicine Cardiovascular Disease
DX: I45.10 Unspecified right bundle-branch block (principal)
CPT/HCPCS: 93306; Q9957

== ENCOUNTER → 2023-09-12 10:43 | Outpatient (BNV) | payer SELFPAY | PROVIDERS: PCP Internal Medicine; Visit Provider Internal Medicine | DX: I51.89 Other ill-defined heart diseases (principal) | CPT/HCPCS: 93306 ==

== ENCOUNTER 2023-11-30 08:25 | Outpatient (REF) | payer SELFPAY ==
[2023-11-30 10:23] LABS: Anion Gap 12 (12-20); Blood Urea Nitrogen 11 mg/dL (9-16); Calcium 8.9 mg/dL (8.4-10.2); Carbon Dioxide 28 mmol/L (22-29); Chloride 103 mmol/L (96-108); Estimated Glomerular Filt Rate > 60; Glucose Random 102 mg/dL (60-115); Potassium 3.9 mmol/L (3.3-5.1); Sodium 139 mmol/L (135-145)
== END 2023-11-30 08:26 | disposition home or self-care (01) ==
LOC: HO.HMGCLDS 08:25
PROVIDERS: PCP Internal Medicine; Visit Provider Internal Medicine Hypertension Specialist
DX: N18.30 Chronic kidney disease, stage 3 unspecified (principal)
CPT/HCPCS: 36415; 80048

== ENCOUNTER 2023-12-02 09:24 | Outpatient (AMB) | payer SELFPAY ==
[2023-12-02 09:27] VITALS: BP 114/72; BMI 22.6
--- NOTE | 2023-12-02 09:27 | HO.NEPHOV ---
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 Accompanied by: Self / Same As Patient Allergies pollen Allergy (Uncoded 05/31/23 11:41) Sneezing Medication List - Last Reconciled 12/02/23 by Brad Jain MD albuterol sulfate 90 mcg/actuation (ProAir RespiClick) 2 inhalations inhalation Q6H PRN aspirin (Adult Low Dose Aspirin) 81 mg PO DAILY budesonide-formoterol 160-4.5 mcg/actuation (Symbicort) 1 puff inhalation ONCE [cannabis orally; ] hydroxyzine HCl 10 mg PO TID PRN lisinopril 20 mg PO DAILY magnesium 500 mg PO DAILY nicotine (polacrilex) (Nicorette) 4 mg buccal Q2H HPI Comments Details: Elderly man with a h/o HTN referred for Elevated serum creatinine In Feb 2022, Creatinine was 1.1 and currently at 1.46 with eGFR of 47 ml/mt He has been on Lisinopril 20 mg QD h/o Significant alcohol intake for many years. Stopped about 20 days ago h/o Heavy smoking for 40 years; Quit 15 yrs ago Denies any specific complaints today 12/02/23 Doing well Has cut back on Beer Seen by and underwent USG-Diagnosed with PVD Has follow up in few months [facility] Medical History History of alcohol use disorder Acquired deformity of toenail Decreased pedal pulses Leg cramps Pain of foot and toes Elevated fasting glucose Hyperlipidemia Frequent falls Elevated serum creatinine Right bundle branch block (RBBB) determined by electrocardiography Vitamin D deficiency Hx of smoking History of alcohol abuse Macrocytosis without anemia Elevated PSA COVID-19 vaccination refused Immunization refused Colonoscopy refused COPD (chronic obstructive pulmonary disease) Essential hypertension Surgical History Status post herniorrhaphy History of ankle surgery Family History Father HTN (hypertension) Diabetes mellitus with neuropathy Mother No problems noted. Sister No problems noted. Social History Housing: House Alcohol intake: current Alcohol intake frequency: 0-2 drinks per day Alcohol type: beer Patient Tobacco Use Status: Former Tobacco user Years Smoked: 40 yrs e-Cigarette/Vaping Use: Never Used Substance Use Type: Marijuana service: No Current occupational status: retired Cognitive needs: No Hearing needs: No Vision needs: Yes Physical Exam Vital Signs: Last Vital Signs BP 114/72 12/02/23 09:27 BMI result Body Mass Index 22.6 Awake. Comfortable. Neck is supple. Mucosa moist. Lungs bilateral scattered rhonchi. Heart S1-S2 heard no gallop. Abdomen soft. Extremities no edema. No involuntary movements. No myoclonus. Results Reviewed Nephrology Results: Hgb 11.4 g/dl (14.0-18.0) L 05/27/23 WBC 6.9 X10*3/uL (4.8-10.8) 05/27/23 Plt Count 285 X10*3/uL (160-400) 05/27/23 Sodium 139 mmol/L (135-145) 11/30/23 Potassium 3.9 mmol/L (3.3-5.1) 11/30/23 Chloride 103 mmol/L (96-108) 11/30/23 Carbon Dioxide 28 mmol/L (22-29) 11/30/23 BUN 11 mg/dL (9-16) 11/30/23 Creatinine 0.91 mg/dL (0.5-1.4) 11/30/23 Calcium 8.9 mg/dL (8.4-10.2) 11/30/23 PTH Intact 43.7 pg/mL (8.7-77.1) 05/27/23 Urine Protein Negative mg/dL (Neg-Trace) 05/27/23 Urine Creatinine 64.91 mg/dL 05/27/23 Renal US 05/02/23 Assessment & Plan Assessment & Plan (1) CKD (chronic kidney disease) stage 3, GFR 30-59 ml/min: Code(s): N18.30 - Chronic kidney disease, stage 3 unspecified Category: Medical (2) Essential hypertension: Code(s): I10 - Essential (primary) hypertension Category: Medical Plan Elderly man with age related decline in eGFR superimposed HIREN due to volume depletion - DDx includes prerenal causes including volume depletion/hypoperfusion Resolved urine studies are unremarkable Post renal causes - No obstructive uropathy based on USG Increase PO fluid Low salt diet Avoid nephrotoxins including NSAIDS Maintain BP < 130/80 and avoid hypotension Orders: Orders Basic Metabolic Panel 11 Months I10 - Essential (primary) hypertension, N18.30 - Chronic kidney disease, stage 3 unspecified Complete Blood Count Auto Diff 11 Months I10 - Essential (primary) hypertension, N18.30 - Chronic kidney disease, stage 3 unspecified Creatinine Urine 11 Months I10 - Essential (primary) hypertension, N18.30 - Chronic kidney disease, stage 3 unspecified Total Protein Urine Random 11 Months I10 - Essential (primary) hypertension, N18.30 - Chronic kidney disease, stage 3 unspecified UA and rflx microscopic 11 Months I10 - Essential (primary) hypertension, N18.30 - Chronic kidney disease, stage 3 unspecified Coding Level of Care Code Est Pt Level 3 (99310) Diagnoses CKD (chronic kidney disease) stage 3, GFR 30-59 ml/min N18.30 Essential hypertension I10
== END 2023-12-02 09:48 | disposition home or self-care (01) ==
PROVIDERS: PCP Internal Medicine; Visit Provider Internal Medicine Hypertension Specialist
DX: I12.9 Hypertensive chronic kidney disease with stage 1 through stage 4 chronic kidney disease, or unspecified chronic kidney disease (principal); N18.30 Chronic kidney disease, stage 3 unspecified
CPT/HCPCS: 99213

== ENCOUNTER → 2023-12-02 09:24 | Outpatient (BNVA) | payer SELFPAY | PROVIDERS: PCP Internal Medicine; Visit Provider Internal Medicine Hypertension Specialist | DX: I12.9 Hypertensive chronic kidney disease with stage 1 through stage 4 chronic kidney disease, or unspecified chronic kidney disease (principal); N18.30 Chronic kidney disease, stage 3 unspecified | CPT/HCPCS: 99212 ==

== ENCOUNTER 2024-06-21 09:23 | Outpatient (REF) | payer SELFPAY ==
--- OUTSIDE RECORDS SUMMARY | 2024-06-21 10:14 | XMS_ITS ---
Author Organization [facility] Address [address] [place] [id number] Care Team Providers Care Mail Handlers Supervisor Name Role Phone Hasmukh ACLLAWAY, Shannan Pretty Primary Care Provider Un available Huma Ledbetter Unavailable [phone] REASON FOR VISIT PCP Notes Entered Encounters Encounter Location Date Provider Diagnosis [address] [address] 08/26/2023 Huma Ledbetter Plan Of Treatment No Information Progress Notes * Tavares AHMADIDOB: [birth year] (78 yo M)Acc No.[id number]:08/26/2023 Patient:?Tavares Ahmadi :1945???Age:78 Y???Sex:Male Address:[address] [place] [address], [id number] * true * Date:? Generated for Printi ng/Faheribertog/eTransmitting on:?06/21/2024 10:14 AM EDT
--- OUTSIDE RECORDS SUMMARY | 2024-06-21 10:15 | XMS_ITS | Patient Health Record ---
[facility] Address [address] [place] [address] Care Team Providers Care Material Planning Analyst Name Role Phone Hasmukh CALLAWAY, Shannan Pretty Primary Care Provider Un available TobiasMarcelino gomesen Unavailable [phone] Allergies No Known Allergies Reason For Referral No Information Medications Medication SIG (Take, Route, Frequency, Duration) Notes Start Date End Date Status Marijuana approved for medical use as prescribed Active Albuterol Sulfate Un known hydrOXYzine HCl 10 MG 1 tablet as needed Orally Once a day Active ProAir RespiClick Ac tive Lisinopril Active Nicorette Active Aspirin Adult Low Dose Unknown Budesonide-Formoterol Fumarate Unknown Magnesium Active zinc Active Symbicort 160-4.5 MCG/ACT 1 puff as need ed Inhalation every 4 hrs Active Social History Tobacco Use: Social History Observation Description Date Details (start date - stop date) Former Smoker NA - NA Tobacco Use/Smoking Question Answer Notes Are you a: former smoker Additional Findings: Tobacco Non-User Cu rrent non-smoker,Ex-heavy cigarette smoker (20-30/day) Alcohol Screen Question Answer Notes Did you have a drink containing alcohol in the p ast year? Yes Points 0 Interpretation Negative Tobacco use other than smoking: Question Answer Notes Are you an other tobacco user? No Problems Problem Type SNOMED Code ICD Code Onset Dates Problem Status W/U Status Risk Notes Problem Bilateral atherosclerosis of arteries of lower limbs (disorder) ([id number] ) Atherosclerosis of [place] artery of both lower extremities, with unspecified presence of clinical manifestation (I70.203) Active confirmed Vital Signs Blood pressure diastolic 80 mm Hg 09/21/2023 Height 5 ft 10 in in 09/21/2023 Blood pressure systolic 132 mm Hg 09/21/2023 Weight 150 lbs lbs 09/21/2023 BMI 21.52 kg/m2 09/21/2023 Encounters Encounter Location Date Provider Diagnosis [address] [address] 09/21/2023 Huma Ledbetter Atherosclerosis of [place] artery of both lower extremities, with unspecified presence of clinical manifestation I70.203 ; Tinea unguium B35.1 ; Cramping of feet R25.2 ; Pain in left toe(s) M79.675 and Pain in right toe(s) M79.[address] [address] 08/26/2023 Huma Ledbetter [address] [address] 09/21/2023 Huma Ledbetter Assessments Encounter Date Diagnosis (ICD Code) Assessment Notes Treatment Notes Treatment Clinical Notes Section Notes 09/21/2023 Atherosclerosis of [place] artery of both lower extremities, with unspecified presence of clinical manifestation (ICD-10 - I70.203) 09/21/2023 Tinea unguium (ICD-10 - B35.1) 09/21/2023 Cramping of feet (ICD-10 - R25.2) 09/21/2023 Pain in left toe(s) (ICD-10 - M79.675) 09/21/2023 Pain in right toe(s) (ICD-10 - M79.674) Plan Of Treatment No Information Medical (General) History Medical History History ICD Code Hypertension Panic attacks hx of alcohol abuse acquired deformity of toenail decreased pedal pulses leg cramps pain of foot and toes hyperlipidemia elevated fasting glucose frequent falls elevated serum creatinine RBBB vitamin d deficiency history of smoking hx of alcohol use disorder macrocytosis w/o anemia COPD elevated PSA Back,Hip,and Knee pain Broken bones Numbness Measles Mumps Chicken pox Joint implants/screws Surgical History Surgery Date(Month/Year) ankle surgery status post herniorrhaphy hernia
--- OUTSIDE RECORDS SUMMARY | 2024-06-21 10:15 | XMS_ITS ---
Author Organization [facility] ([facility] kareem Gracey Address [address] [place] [address] Care Team Providers Care Nuisance Wildlife Control Operator Name Role Phone Hasmukh CALLAWAY, Shannan Pretty Primary Care Provider Un available Huma Ledbetter Unavailable [phone] Allergies No Known Allergies REASON FOR VISIT Pcp-03/16, At Risk Footcare, Foot pain Medications Medication SIG (Take, Route, Frequency, Duration) Notes Start Date End Date Status Marijuana approved for medical use as prescribed Active Albuterol Sulfate Un known ProAir RespiClick Ac tive Aspirin Adult Low Dose Unknown Budesonide-Formoterol Fumarate Unknown Lisinopril Active Nicorette Active Magnesium Active zinc Active Symbicort 160-4.5 MCG/ACT 1 puff as need ed Inhalation every 4 hrs Active hydrOXYzine HCl 10 MG 1 tablet as needed Orally Once a day Active Social History Tobacco Use: Social History [...] atherosclerosis of arteries of lower limbs (disorder) ([id number] ) Atherosclerosis of [place] artery of both lower extremities, with unspecified presence of clinical manifestation (I70.203) Active confirmed Vital Signs Height 5 ft 10 in in 09/21/2023 Weight 150 lbs lbs 09/21/2023 BMI 21.52 kg/m2 09/21/2023 Blood pressure systolic 132 mm Hg 09/21/19 24 Blood pressure diastolic 80 mm Hg 024 Encounters Encounter Location Date Provider Diagnosis [facility] [address] [address] [place] [address] 09/21/2023 Huma Ledbetter Atherosclerosis of [place] artery of both lower extremities, with unspecified presence of clinical manifestation I70.203 ; Tinea unguium B35.1 ; Cramping of feet R25.2 ; Pain in left toe(s) M79.675 and Pain in right toe(s) M79.674 Assessments Encounter Date Diagnosis (ICD Code) Assessment Notes Treatment Notes Treatment Clinical Notes Section Notes 09/21/2023 Atherosclerosis of [place] artery of both lower extremities, with unspecified presence of clinical manifestation (ICD-10 - I70.203) 09/21/2023 Tinea unguium (ICD-10 - B35.1) 09/21/2023 Cramping of feet (ICD-10 - R25.2) 09/21/2023 Pain in left toe(s) (ICD-10 - M79.675) 09/21/2023 Pain in right toe(s) (ICD-10 - M79.674) Plan Of Treatment Next Appt Details Follow Up: prn, Reason: Procedure Notes * Category Sub-Category Detail Notes Debride Nail 6-10 Nail debridement Nail debridem ent performed extensively to reduce/remove overall nail length, girth, thickness, subungual debris, and necrotic tissue, by manual and electrical means through the use of a nail nipper and/or dremel, to more viable healthy nail plate or bed tissue 1-5. Silver nitrate used for any petechial bleeding as necessary. Patient chooses, no pharmaceutical tx (32780) Keratoma Treatment Parring or Cutting o f Benign Hyperkeratotic Lesion(s) 26587 ( 1 Lesion ) - The Benign hyperkeratotic lesion, as described above was pared, and/or cut utilizing a sterile 15 blade, tissue nippers, and/or dremel Progress Notes * Ced AHMADI: [birth year] (78 yo M)Acc No.[id number]:09/21/2023 Progress Notes Patient:?Tavares Ahmadi Provider:?Huma Ledbetter DPM :1945???Age:78 Y???Sex:Male Lan e:09/21/2023 Address:[address] [place] [address] [place], [place] [id number] Pcp:Lisandro Viera Subjective: * Chief Complaints: * ???Pcp-03/16At Risk Footcare Foot pain * HPI: ???At Risk footcare:?Pt States Last PCP Visit:?Date?02/22/2023 ???Foot Pain:?Nature:?cramping , aching.?Location:?B/L.?Duration:?several years, 10+.?Course:?worse.?Aggravated:?rest , Worse at night when in bed.? * ROS:?General/Constitutional:?Nausea?denies.?Vomiting?denies.?Hunger Thirst?denies.?Loss appetite?denies.?Chills?denies.?Fatigue?denies.?Fever?denies.?Night Sweats?denies.?Unexplained weight loss?denies.?Unexplained weight gain?denies.?HEENTM:?Dentures?denies.?Dizziness?denies.?Glasses/contacts?admits ?.?Retinopathy?denies.?Blurred/double vision?denies.?TMJ?denies.?Discharge/drainage?denies.?Implants?denies.?Sore throat?denies.?Dental implants?admits ?.?Hard of hearing ?denies.?Difficulty chewing/swallowing/speaking?denies.?Nose bleeds?denies.?Sore mouth?denies.?Respiratory:?On Oxygen?denies.?Pneumonia/pleurisy?denies.?Bronchitis?denies.?Emphysema?denies.?C oughing?denies.?Cough blood?denies.?Shortness of breath?admits ?.?Wheezing?denies.?Cardiovascular:?Pacemaker?denies.?MVP?denies.?WPW?denies.?CHF?denies.?Heart attack?denies.?Septal defect?denies.?Rapid beat?denies.?Chest pain ?denies.?Atrial Fib.?denies.?Murmur/Palpitations?denies.?Gastrointestinal:?Hemorrhoids?denies.?Stomach/Abdominal pain?denies.?Dark blood stool?denies.?Irritable bowel ?denies.?Constipation?denies.?Diarrhea?denies.?Hematology:?Swelling?denies.?Clots?denies.?Varicose Veins?denies.?Bruising?denies.?Bleeding problem?denies.?Genitourinary:?Blood urine?denies.?Frequent/Painfu/urination/bladder control?denies.?Kidney stones?denies.?Infection (UTI)?denies.?Nephropathy?denies.?sex trans dis (STD)?denies.?Prostate?denies.?Musculoskeletal:?Hammertoes?denies.?Bunions?denies.?Back Pain?admits ?.?Muscle Cramps/ Resting?admits.?Muscle cramps / walking?admits ?.?Generalized aches and pains?admits ?.?Weakness?denies.?Integ.:?[place]?denies.?Scars?denies.?Corns/calluses?denies.?Ingrown nails?denies.?Painful nails?denies.?Open Sores?denies.?Rashes?denies.?Neurologic:?Difficulty sleeping?denies.?Brain disorder?denies.?Numbness?admits ?.?Balance trouble?denies.?Confusion?denies.?Fainting/blackouts?denies.?Tingling?admits ?.?Tremors?denies.? * Medical History:? * Surgical History:?ankle surg ejrrica status post herniorrhaphy hernia * Hospitalization/Major Diagno stic Procedure:?Denies Past Hospitalization * Family History:?Mother: dece ased, heart attack.?Father: , stroke, diagnosed with Diabetic - NIDDM, Unspecified essential hypertension.? * Social History:?Tobacco Use:?Tobacco Use/Smoking?Are you a:?former smoker ?Additional Findings: Tobacco Non-User?Current non-smoker,Ex-heavy cigarette smoker (20-30/day) ?Tobacco use other than smoking?Are you an other tobacco user??No ???Drugs/Alcohol:?Drugs?Have you used drugs other than those for medical reasons in the past 12 months??Yes ?Alcohol Screen?Did you have a drink containing alcohol in the past year??Yes ?Points?0 ?Interpretation?Negative ???Miscellaneous:?Caffeine: yes, frequency:, 1-2 cups per day. ?no Children. ?Exercise: yes, yard work, short walks, crossword puzzles, internet. ?Marital status: single, . 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 * Medications:?TakingMarijuana approved for medical use as prescribed ProAir RespiClick hydrOXYzine HCl 10 MG Tablet 1 tablet as needed Orally Once a daySymbicort 160- 4.5 MCG/ACT Aerosol 1 puff as needed Inhalation every 4 hrszinc Magnesium Nicorette Lisinopril Taking Marijuana approved for medical use as prescribed Taking ProAir RespiClick Taking hydrOXYzine HCl 10 MG Tablet 1 tablet as needed Orally Once a dayTaking Symbicort 160-4.5 MCG/ACT Aerosol 1 puff as needed Inhalation every 4 hrsTaking zinc Taking Magnesium Taking Nicorette Taking Lisinopril UnknownBudesonide-Formoterol Fumarate Aspirin Adult Low Dose Albuterol Sulfate Medication List reviewed and reconciled with the patientUnknown Budesonide- Formoterol Fumarate Unknown Aspirin Adult Low Dose Unknown Albuterol Sulfate Medication List reviewed and reconciled with the patient * Allergies:?N.K.D.A.yes[Aller gies Verified] Objective: * Vitals:?Ht: 5 ft 10 in, Wt: 150 lbs, BMI: 21.52, Shoe size: 9, BP: 132/80 mm Hg, Ht-cm: 177.8 cm, Wt-k.04 kg. * Examination: ???Vascular: ?DP PULSES:? 0/4, B/L.?PT PULSES:? 0/4, B/L.?CAPILLARY FILL TIME:? delayed, all digits, B/L.?SKIN TEMPERTURE GRADIENT OF THE LOWER EXTERMITIES:? decreased, cool to cool, proximal to distal, B/L.?HAIR GROWTH/TEXTURE/ELASTICITY/TURGOR:? decreased, B/L.?PIGMENTATION:?mottled.?EDEMA:?non-pitting , without aching pain , Ankle(s) , Leg(s).?CLAUDICATION:?denies, B/L.?REST PAIN:?denies, B/L.?Nails: ?NAILS are:?Elongated, overgrown, dystrophic, lytic, greater than 3mm thick, discolored and friable with crumbly malodorous subungual debris, with pain on palpation?, 1-5 B/L.?Dermatologic: ?SKIN FINDINGS:?Skin exam reveals Keratotic lesion(s) located at, SUB MTH (s), 5.?Orthopedic: ?MUSCLE STRENGTH:?5/5 all groups in a symmetrical fashion, B/L.?Neurological: ?SENSORY:?Neurological exam reveals intact sensorium, pain sensation normal, vibration sensation intact, pinprick sensation is normal in the lower extremities, Pt relates anesthesia, burning, paresthesia, tingling, B/L.?General Examination: ?GENERAL APPEARANCE:?Reveals a pleasant, alert, well nourished, well- developed, well hydrated individual, who demonstrates proper attention to hygiene/body habitus, and is in no acute distress, Pt serves as own historian for office visit today.?ORIENTED:?person, place, and time.? Assessment: * Assessment: 1.?Atherosclerosis of [place] artery of both lower extremities, with unspecified presence of clinical manifestation - I70.203?2.?Tinea unguium - B35.1?3.?Cramping of feet - R25.2?4.?Pain in left toe(s) - M79.675?5.?Pain in right toe(s) - M79.674? Plan: * Treatment: * Procedures:?Debride Nail 6-10:?Nail debridement?Nail debridement performed extensively to reduce/remove overall nail length, girth, thickness, subungual debris, and necrotic tissue, by manual and electrical means through the use of a nail nipper and/or dremel, to more viable healthy nail plate or bed tissue 1-5. Silver nitrate used for any petechial bleeding as necessary. Patient chooses, no pharmaceutical tx (05665).?Keratoma Treatment:?Parring or Cutting of Benign Hyperkeratotic Lesion(s)?51033 ( 1 Lesion ) - The Benign hyperkeratotic lesion, as described above was pared, and/or cut utilizing a sterile 15 blade, tissue nippers, and/or dremel.? * Procedure Codes:? * Preventive Medicine:? ??Counseling:?Discussion:?-03: Office or other outpatient visit for the evaluation and management of a new patient, which required a medically appropriate history and/or examination and LOW level of DECISION MAKING for: 1 STABLE ACUTE UNCOMPLICATED PROBLEM, 2 OR MORE MINOR PROBLEMS, OR 1 STABLE CHRONIC PROBLEM, THAT POSE(S) A LOW RISK FOR MORBIDITY/MORTALITY. The visit on the day of the encounter encompassed interpreting the data and educating the patient as to the nature of their condition, treatment options available according to their individual PMH, meds, allergies, and overall health/living conditions, as well as any potential risks or complications that may occur from a failure to adhere to, and participate in, the recommended course of therapy. The discussion included a complete verbal, and/or written explanation of the examination results, any x-rays taken, the proposed diagnosis, and outline of the treatment plan. A schedule for future care needs was also explained. The patient verbalized an understanding of the instructions at this time and agreed to be an active participant in their treatment. If the patient should think of any questions or concerns after the visit, I have encouraged the patient to call the office.?Podiatric Counseling:?I explained the etiology of the patients podiatric pathology and the usual treatment plan. The patient was made aware of the adverse risks and sequelae associated with their medical condition(s) and the treatment necessary to avoid those complications. Patient was educated that due to PVD he is at risk for future ulceration. He was educated on signs and symptoms of infection and encouraged to call the office should any arise. Patient endorsed understanding..?Ultrasound:?Discussed and reviewed the Arterial Ultrasound with the patient. Patient examination shows moderate peripheral vascular disease, particularly to left lower extremity. Recommended consult to Vascular surgery. We discussed how the findings relate to the patients symptoms/complaints. Answered any and all questions..? * Follow Up:?prn * Images: * Sign off status: Completed true * Provider:?Huma Ledbetter DPM Date:? Generated for Sneha duran/Marta/Marty on:?06/21/2024 10:15 AM EDT History and Physical Notes * HPI (History of Present Illness) Category Sub-Category Detail Notes Category Not es At Risk footcare Pt States Last PCP Visit: Date: 4 Foot Pain Nature: cramping , aching Location: B/L Duration: several years, 10+ Course: worse Aggravated: rest , Worse at nigh t when in bed Examination Category Sub-Category Detail Notes Category Not es Neurological SENSORY: Neurological exa m reveals intact sensorium, pain sensation normal, vibration sensation intact, pinprick sensation is normal in the lower extremities, Pt relates anesthesia, burning, paresthesia, tingling, B/L Dermatologic SKIN FINDINGS: Skin exam reveal s Keratotic lesion(s) located at, SUB MTH (s), 5 Orthopedic MUSCLE STRENGTH: 5/5 all groups in a symmetrical fashion, B/L General Examination GENERAL APPEARANCE: Reveals a pleasant, alert, well nourished, well-developed, well hydrated individual, who demonstrates proper attention to hygiene/body habitus, and is in no acute distress, Pt serves as own historian for office visit today ORIENTED: person, place, and t jose Vascular DP PULSES (B): 0/4, B/L PT PULSES (B): 0/4, B/L CAPILLARY FILL TIME: delayed, all digits , B/L TEMPERTURE GRADIENT (C): decreased, cool to cool, proximal to distal, B/L TROPHIC CONDITION-TEXTURE/ELASTICITY/TURGOR/HAIR GROWTH (B): decreased, B/L EDEMA (C): non-pitting , withou t aching pain , Ankle(s) , Leg(s) CLAUDICATION (C): denies, B/L REST PAIN: denies, B/L PIGMENTATION: mottled Nails NAILS are: Elongated, overg rown, dystrophic, lytic, greater than 3mm thick, discolored and friable with crumbly malodorous subungual debris, with pain on palpation , 1-5 B/L
--- OUTSIDE RECORDS SUMMARY | 2024-06-21 10:16 | XMS_ITS ---
Author Organization [facility] Address [address] [place] [address] Care Team Providers Care Correctional Supply Supervisor Name Role Phone Hasmukh CALLAWAY, Shannan Pretty Primary Care Provider Un available Huma Ledbetter [phone] REASON FOR VISIT NEEV Encounters Encounter Location Date Provider Diagnosis [address] [address] 09/21/2023 Huma Ledbetter Plan Of Treatment No Information Progress Notes * Tavares AHMADIDOB: [birth year] (78 yo M)Acc No.[id number]:09/21/2023 Patient:?Tavares Ahmadi :1945???Age:78 Y???Sex:Male Address:[address] [place] [address], [id number] * true * Date:? Generated for Printi ng/Faheribertog/eTransmitting on:?06/21/2024 10:15 AM EDT
[2024-06-21 13:06] LABS: MANUAL DIFF FLAG NO
[2024-06-21 13:16] LABS: Basophils Percent Auto 0.6 % (0-2); Eosinophils Absolute Auto 0.4 X10*3/uL (0.0-0.4); Eosinophils Percent Auto 5.8 % (0-4); Hematocrit 34.1 % (42.0-52.0); Hemoglobin 10.1 g/dl (14.0-18.0); Imm Gran Abs Auto 0.01 X10*3/uL (0.00-0.03); Imm Gran Pct Auto 0.2 % (0.0-0.4); Lymphocytes Absolute Auto 2.2 X10*3/uL (1.2-4.9); Lymphocytes Percent Auto 32.9 % (20-40); Mean Corpuscular HGB Conc 29.6 g/dl (31.0-36.0); Mean Corpuscular Volume 81.2 fL (80.0-98.0); Mean Platelet Volume 9.8 fL (9.4-12.4); Monocytes Absolute Auto 0.7 X10*3/uL (0.1-1.2); Neutrophils Absolute Auto 3.2 x10*3/uL (2.0-8.3); Neutrophils Percent Auto 49.5 % (45-73); Platelet Count 264 X10*3/uL (160-400); Red Cell Distribution Width 15.5 % (11.0-16.0); White Blood Count 6.5 X10*3/uL (4.8-10.8)
[2024-06-21 13:30] LABS: Alanine Aminotransferase 11 U/L (0-40); Anion Gap 13 (12-20); Aspartate Amino Transferase 19 U/L (5-37); Blood Urea Nitrogen 15 mg/dL (9-16); Calcium 9.4 mg/dL (8.4-10.2); Carbon Dioxide 27 mmol/L (22-29); Chloride 105 mmol/L (96-108); Cholesterol 170 mg/dL (<200); Estimated Glomerular Filt Rate > 60; Glucose Fasting 90 mg/dL (60-99); HDL Cholesterol 65 mg/dL (>40); Iron 50 mcg/dL (45-160); LDL Cholesterol Calculated 86 mg/dL (<100); Percent Iron Saturation 15 % (15-50); Potassium 4.5 mmol/L (3.3-5.1); Sodium 140 mmol/L (135-145); Total Iron Binding Capacity 342 mcg/dL (228-428); Triglycerides 95 mg/dL (<150); Unsaturated Iron Binding 292 ug/dL
[2024-06-21 13:46] LABS: PSA,Total (Free>4and<10) 2.77 ng/mL (0.00-4.00)
== END 2024-06-21 09:24 | disposition home or self-care (01) ==
LOC: HO.HMGCLDS 09:23
PROVIDERS: PCP Internal Medicine; Visit Provider Internal Medicine
DX: I10 Essential (primary) hypertension (principal); R97.20 Elevated prostate specific antigen [PSA]; D75.89 Other specified diseases of blood and blood-forming organs; R79.89 Other specified abnormal findings of blood chemistry; N18.30 Chronic kidney disease, stage 3 unspecified; E78.5 Hyperlipidemia, unspecified; R73.01 Impaired fasting glucose; Z87.898 Personal history of other specified conditions; Z12.5 Encounter for screening for malignant neoplasm of prostate
CPT/HCPCS: 36415; 80048; 80061; 83540; 84153; 84450; 84460; 85025

== ENCOUNTER 2024-06-25 13:16 | Outpatient (AMB) | payer SELFPAY ==
[2024-06-25 13:59] VITALS: BP 126/68; PULSE 85; RESP 16; TEMP 36.8; O2SAT 100; BMI 22.4
--- NOTE | 2024-06-25 13:59 | MHC.PC.OV ---
Vital Signs 06/25/24 13:59 Height 5 ft 9 in Weight 152 lb BMI 22.4 BP 126/68 Blood Pressure Location Lt brachial Position Sitting Respiration 16 Pulse 85 Pulse Source Pulse Oximeter Temp 98.3 F Temp Source Oral Pulse Oximetry (%) 100 Oxygen Delivery Method Room Air Intake Visit Reasons: Annual PE Intake Note: Pt is here today for his PE Allergies pollen Allergy (Uncoded 06/25/24 14:06) Sneezing Medication List - Last Reconciled 06/25/24 by Shannan Noe MD albuterol sulfate 90 mcg/actuation (ProAir RespiClick) 2 inhalations inhalation Q6H PRN aspirin (Adult Low Dose Aspirin) 81 mg PO DAILY budesonide-formoterol 160-4.5 mcg/actuation (Symbicort) 1 puff inhalation ONCE [cannabis orally; ] hydroxyzine HCl 10 mg PO TID PRN lisinopril 20 mg PO DAILY magnesium 500 mg PO DAILY nicotine (polacrilex) (Nicorette) 4 mg buccal Q2H Tobacco use date assessed: 06/25/24 Fall risk assessment: No Falls in past year Last assessed Fall Risk: 06/25/24 Dental Screening Dental Screen Date: 06/25/24 Did you have a dental visit in the last 12 months?: Yes Did you have a dental problem in the last 6 months where you did not have access to dental care?: No Was dental information given to patient?: Patient has dentist HPI Annual PE HPI Details 79 year-old male with history of hypertension, COPD, here today for his physical exam. He is currently taking lisinopril 20 mg daily with blood pressure controlled with present treatment. He is on Symbicort for his COPD . Patient's continues to refuse all vaccination offered, and declines any colon cancer screening. He lives on his own, still drives, cooks his own meals. Denies any headache, no chest pain, no dizziness or shortness of breath. He is a former smoker, but continues to drink alcoholic beverage on a daily basis. [facility] Medical History (Updated 07/02/24 @ 04:08 by Shannan Noe MD) Peripheral arterial occlusive disease Hypochromic anemia History of alcohol use disorder Acquired deformity of toenail Decreased pedal pulses Leg cramps Pain of foot and toes Elevated fasting glucose Hyperlipidemia Frequent falls Elevated serum creatinine Right bundle branch block (RBBB) determined by electrocardiography Vitamin D deficiency Hx of smoking History of alcohol abuse Macrocytosis without anemia Elevated PSA COVID-19 vaccination refused Immunization refused Colonoscopy refused COPD (chronic obstructive pulmonary disease) Essential hypertension Surgical History Status post herniorrhaphy History of ankle surgery Family History Father HTN (hypertension) Diabetes mellitus with neuropathy Mother No problems noted. Sister No problems noted. Social History (Updated 06/25/24 @ 14:10 by Shannan Noe MD) Housing: House Alcohol intake: current Alcohol intake frequency: a few times a week Alcohol type: beer Patient Tobacco Use Status: Former Tobacco user Years Smoked: 40 yrs e-Cigarette/Vaping Use: Never Used Substance Use Type: Marijuana service: No Current occupational status: retired Cognitive needs: No Hearing needs: No Vision needs: Yes Questionnaire PHQ-9 Over the last 2 weeks, how often have you been bothered by any of the following problems? 1. Little interest or pleasure in doing things: not at all 2. Feeling down, depressed, or hopeless: not at all 3. Trouble falling or staying asleep, or sleeping too much: not at all 4. Feeling tired or having little energy: not at all 5. Poor appetite or overeating: not at all 6. Feeling bad about yourself - or that you are a failure or have let yourself or your family down: not at all 7. Trouble concentrating on things, such as reading the newspaper or watching television: not at all 8. Moving or speaking so slowly that other people could have noticed. Or the opposite - being so fidgety or restless that you have been moving around a lot more than usual: not at all 9. Thoughts that you would be better off or of hurting yourself in some way: not at all Total score: 0 Depression Screening Interpretation: Negative Depression Screening Done: Yes 16421 - PHQ-9 Billing: Yes Source: Developed by Drs. Carroll Silverman, Hanane Choudhary, Te Stauffer and colleagues, with an educational oscar from [employer]. Thrive Questionnaire Date Thrive assessed: 06/25/24 I am a: Patient What is your living situation today?: I have a steady place to live Within the past 12 months, did the food you bought not last and you didn't have the money to get more?: Never true Within the past 12 months, did you worry whether your food would run out before you got money to buy more?: Never true Do you have trouble paying for medicines?: No Do you have trouble getting transportation to medical appointments?: No Do you have trouble paying your heating and electricity bill?: No Do you have trouble taking care of your child, family member or friend?: No Do you have trouble with day-to-day activities such as bathing, preparing meals, shopping, managing finances, etc.?: No Are you currently unemployed and looking for a job?: No Are you interested in more education?: No THRIVE Score: 0 AUDIT C Alcohol Use Questionnaire (AUDIT-C) 1. How often do you have a drink containing alcohol?: 2-3 times a week 2. How many drinks containing alcohol do you have on a typical day when you are drinking?: 3 or 4 3. How often do you have six or more drinks on one occasion?: Never Total Score: 4 ROXANA-7 AMB Questionnaire ROXANA-7 Date ROXANA - 7 assessed: 06/25/24 Feeling nervous, anxious, or on edge: 0 = Not at all Not being able to stop or control worryin = Not at all Worrying too much about different things: 0 = Not at all Trouble relaxin = Not at all Being so restless that it is hard to sit still: 0 = Not at all Becoming easily annoyed or irritable: 0 = Not at all Feeling afraid as if something awful might happen: 0 = Not at all Total ROXANA-7 score (0-4 normal; 5-9 mild; 10-14 moderate; 15-21 severe): 0 Source: Developed by Drs. Carroll Silverman, Hanane Choudhary, Te Stauffer and colleagues, with an educational oscar from [employer]. ROXANA-7 Assessment Billing ROXANA-7 Assessment Tool: ROXANA-7 Assessment 38728 Review of Systems Const Denies chills, Denies daytime sleepiness, Denies fatigue, Denies fever(s), Denies frequent falls, Denies poor appetite, Denies snoring, Denies stops breathing during sleep, Denies weakness, Denies weight gain and Denies weight loss Eyes Denies loss of vision ENT Denies dizziness and Denies hearing loss Card Denies chest pain, Denies claudication, Denies leg edema, Denies lightheadedness, Denies palpitations, Denies dyspnea, Denies dyspnea on exertion and Denies orthopnea Resp Denies cough, Denies excessive phlegm production, Denies dyspnea, Denies dyspnea on exertion, Denies snoring and Denies wheezing GI Denies abdominal pain, Denies hematochezia, Denies change in bowel habits, Denies nausea and Denies vomiting Denies dysuria and Denies urinary frequency Musc Denies arthralgias, Denies muscle weakness, Denies numbness and Denies other (frequent falls) Skin/Breast Denies nail changes and Denies rash Neuro Denies Abnormal speech present, Denies dizziness, Denies frequent falls, Denies loss of vision, Denies memory loss, Denies numbness and Denies weakness Psych Denies depression and Denies memory loss Endo Denies fatigue and Denies palpitations Adams/Lymph Reports easy bruising and Reports other (anemia) Aller/Immun Denies wheezing Physical exam (Primary Care) Vital Signs: Last Vital Signs Temp 98.3 F 06/25/24 13:59 Pulse 85 06/25/24 13:59 Resp 16 06/25/24 13:59 BP 126/68 06/25/24 13:59 Pulse Ox 100 06/25/24 13:59 Oxygen Delivery Method Room Air 06/25/24 13:59 BMI result Body Mass Index 22.4 Tobacco/Smoking Status: Tobacco use Status Tobacco use date assessed 06/25/24 06/25/24 14:04 Patient Tobacco Use Status Former Tobacco user 06/25/24 14:10 e-Cigarette/Vaping Use Never Used 06/25/24 14:10 PHQ-9: PHQ-9 Score PHQ-9: Total score 0 06/25/24 14:46 Depression Screening Interpretation: Negative Thrive Assessment: Date of Thrive Assessment Date Thrive assessed 06/25/24 06/25/24 14:04 Const General: no acute distress, alert and Physically active Nutritional Appearance: thin Orientation/consciousness: patient oriented x3 Limitations: ambulation with cane HENMT Head: Yes normocephalic Ears: hearing grossly normal bilaterally General nose exam: Normal external nose present Face and sinus: Yes face symmetric Mouth: Normal oral and palatal mucosa present and moist mucous membranes Eyes General: appearance normal, both eyes and all related structures Neck Neck: Yes full ROM, Yes no lymphadenopathy, Yes no meningeal signs and Yes supple Resp Effort & Inspection: normal respiratory effort and able to speak in complete sentences Auscultation: clear to auscultation bilaterally Cardio Other: S1-S2 present Faint dorsalis pedis pulse and posterior tibial pulse bilateral GI Inspection: Yes normal to inspection Palpation (GI): Soft to palpation, nontender, no guarding and no masses Auscultation: normal bowel sounds General: Yes no CVA tenderness Back/Spine/Pelvis Back: no CVA tenderness and No back tenderness Skin Other: Dry skin Nails: discolored, dystrophic and yellow and thickened (both feet) Neuro General: patient oriented x3 and no meningeal signs Speech: No Abnormal speech present Extrem General: Yes full ROM, Yes no joint enlargement, Yes no calf tenderness and Yes normal gait Psych Appearance: disheveled Mental Status: mental status grossly normal Speech and movement: Normal speech and movement present Affect: normal affect Attitude: cooperative Thought process: Normal thought process present Results Reviewed Results Reviewed: Name: Tavares Ahmadi Age/Sex: 79/M : 1945 Unit#: [id number] Attend Dr: Shannan Noe MD Re06/21/24 Status: DEP REF Location: [facility] Disch: SPEC : [id number] JAKE: 06/21/245 STATUS: COMP REQ : [id number] RECD: 06/21/24-[address]: Shannan Noe MD COMP: 06/21/24 ENTERED: 06/21/24-[address]: ORDERED: CBC Auto Diff Test Result Flag Reference WBC 6.5 4.8-10.8 X10*3/uL RBC 4.20 L 4.60-5.80 X10*6/uL HGB 10.1 L 14.0-18.0 g/dl HCT 34.1 L 42.0-52.0 % MCV 81.2 80.0-98.0 fL MCH 24.0 L 27.0-33.0 pg MCHC 29.6 L 31.0-36.0 g/dl RDW 15.5 11.0-16.0 % PLT 264 160-400 X10*3/uL MPV 9.8 9.4-12.4 fL Neut Pct Auto 49.5 45-73 % ImGran Pct Auto 0.2 0.0-0.4 % Lymp Pct Auto 32.9 20-40 % Crosby Pct Auto 11.0 2-11 % Eos Pct Auto 5.8 H 0-4 % Baso Pct Auto 0.6 0-2 % NRBC Pct Auto 0.0 0.0-0.2 /100WBC ANC Neut Abs # 3.2 2.0-8.3 x10*3/uL ImGran Abs Auto 0.01 0.00-0.03 X10*3/uL Lymph Abs Auto 2.2 1.2-4.9 X10*3/uL Crosby Abs Auto 0.7 0.1-1.2 X10*3/uL Eos Abs Auto 0.4 0.0-0.4 X10*3/uL Baso Abs Auto 0.0 0.0-0.2 X10*3/uL NRBC Abs Auto 0.000 0.0-0.012 X10*3/uL Name: Tavares Ahmadi Age/Sex: 79/M : 1945 Unit#: [id number] Attend Dr: Shannan Noe MD Re06/21/24 Status: DEP REF Location: [facility] Disch: SPEC : [id number] JAKE: 06/21/24-1025 STATUS: COMP REQ : [id number] RECD: 06/21/24-[address]: Shannan Noe MD COMP: 06/21/24133 ENTERED: 06/21/24-[address] [facility] [address]: ORDERED: Met Prof Fast, IRON PROF, AST, ALT, Lipid Panel Test Result Flag Reference Sodium 140 135-145 mmol/L Potassium 4.5 3.3-5.1 mmol/L CL 105 96-108 mmol/L CO2 27 22-29 mmol/L Gap 13 12-20 BUN 15 9-16 mg/dL Creat 0.94 0.5-1.4 mg/dL eGFR > 60 Chronic Kidney Disease: Estimated GFR < 60 mL/min/1.73m2 Severe Kidney Disease: Estimated GFR < 15 mL/min/1.73m2 FBS 90 60-99 mg/dL CA 9.4 8.4-10.2 mg/dL Iron 50 45-160 mcg/dL TIBC 342 228-428 mcg/dL Saturation 15 15-50 % UIBC 292 ug/dL AST (GOT) 19 5-37 U/L ALT (GPT) 11 0-40 U/L Triglyceride 95 <150 mg/dL Desirable Triglyceride: less than 150 mg/dL Borderline High Triglyceride 150-199 mg/dL High Triglyceride: 200-499 mg/dL Very High Triglyceride: greater than or equal to 5OO mg/dL Cholesterol 170 <200 mg/dL Desirable Cholesterol: less than 200 mg/dL Borderline High Cholesterol: 200-239 mg/dL High Cholesterol: greater than 239 mg/dL LDL Calculated 86 <100 mg/dL Desirable LDL: less than 100 mg/dL Near Optimal/Above Optimal LDL: 110-129 mg/dL Borderline High LDL: 130-159 mg/dL High LDL: 160-189 mg/dL Very High LDL: greater than or equal to 190 mg/dL HDL 65 >40 mg/dL Desirable HDL: greater than 40 mg/dL Note: This HDL assay may give artificially low results in patients with liver disease. Coding Level of Care Code Est Pt Prev Care >65y(22128) Diagnoses Hypochromic anemia D50.9 History of alcohol use disorder Z87.898 Elevated PSA R97.20 Immunization refused Z28.21 Colonoscopy refused Z53.20 COPD (chronic obstructive pulmonary disease) J44.9 Essential hypertension I10 Annual visit for general adult medical examination with abnormal findings Z00.01 Peripheral arterial occlusive disease I77.9 Additional Codes PHQ-9 - 91672 - PHQ-9 Billing: Yes ([id number]) ROXANA-7 Assessment Billing - ROXANA-7 Assessment Tool: ROXANA-7 Assessment 23218 ([id number]) Assessment & Plan Assessment & Plan (1) Hypochromic anemia: Code(s): D50.9 - Iron deficiency anemia, unspecified Category: Medical Plan: Patient noted to be anemic with hemoglobin of 10 hematocrit of 34.1 with hypochromasia and normal iron panel. Patient refusing to do any colon cancer screening, strongly advised to stop alcohol intake, refusing to get help with his habit. Will check vitamin B12 and folic acid level vitamin B1 and ferritin level, referred to hematology oncology for further evaluation management. Empirically started on ferrous sulfate 325 mg taken once a day (2) History of alcohol use disorder: Comment: Patient states he has not had any alcoholic drinks in February 2023 after last visit Code(s): Z87.898 - Personal history of other specified conditions Category: Medical Plan: Strongly advised patient to cut back or quit alcohol intake, refusing referral to addiction Medicine (3) Elevated PSA: Code(s): R97.20 - Elevated prostate specific antigen [PSA] Category: Medical Plan: Has been referred to urology in the past but never kept appointment. Encouraged to call Urology and reschedule appointment (4) Immunization refused: Comment: for flu , pneumonia vaccine Code(s): Z28.21 - Immunization not carried out because of patient refusal Category: Medical Plan: Deposition does not want to get any vaccination (5) Colonoscopy refused: Code(s): Z53.20 - Procedure and treatment not carried out because of patient's decision for unspecified reasons Category: Medical Plan: Patient declined colon cancer screening (6) COPD (chronic obstructive pulmonary disease): Code(s): J44.9 - Chronic obstructive pulmonary disease, unspecified Category: Medical Plan: Continue with Symbicort (7) Essential hypertension: Code(s): I10 - Essential (primary) hypertension Category: Medical Plan: Continue lisinopril 20 mg daily (8) Annual visit for general adult medical examination with abnormal findings: Code(s): Z00.01 - Encounter for general adult medical examination with abnormal findings Plan: Will check appropriate labs. Recommended dental visit every 6 months and regular eye exams, at least every 2 years. Take adequate calcium in diet and vitamin-D 3 at 2000 IU per cap once a day, in addition to weight-bearing exercises to help maintain good muscle tone and weight control. Instructed to do self testicular exam check for any mass. Declines getting recommended vaccines. Does not want to get colonoscopy screening or Cologuard testing (9) Peripheral arterial occlusive disease: Code(s): I77.9 - Disorder of arteries and arterioles, unspecified Category: Medical Plan: Seen by endovascular surgery at [facility] last year, advised to follow-up again with them due goes treatment options. Orders: Orders Vitamin B12 and Folate 06/25/24 D50.9 - Iron deficiency anemia, unspecified, D64.9 - Anemia, unspecified Vitamin B1 06/25/24 D50.9 - Iron deficiency anemia, unspecified, D64.9 - Anemia, unspecified Ferritin 06/25/24 D50.9 - Iron deficiency anemia, unspecified Referrals Hematology & Oncology Referral D50.9 - Iron deficiency anemia, unspecified Medications: New ferrous sulfate 325 mg PO DAILY 90 tabs 1RF D50.9 - Iron deficiency anemia, unspecified
--- OUTSIDE RECORDS SUMMARY | 2024-06-25 14:41 | XMS_ITS | Patient Health Record ---
Author Organization [facility] Address [address] [place] [address] Care Team Providers Care Laborer Steel Handling Name Role Phone Hasmukh CALLAWAY, Shannan Pretty Primary Care Provider Un available TobiasMarcelino gomesen Unavailable [phone] Allergies No Known Allergies Reason For Referral [...] Problem Status W/U Status Risk Notes Problem Atherosclerosis of [place]add[place] artery of both lower extremities, with unspecified presence of clinical manifestation (I70.203) Active confirmed Vital Signs Blood pressure diastolic 80 mm Hg 09/21/2023 Height 5 ft 10 in in 09/21/2023 Blood pressure systolic 132 mm Hg 09/21/2023 Weight 150 lbs lbs 09/21/2023 BMI 21.52 kg/m2 09/21/2023 Encounters Encounter Location Date Provider Diagnosis [address] [address] 09/21/2023 Huma Ledbetter Atherosclerosis of caddo artery of both lower extremities, with unspecified presence of clinical manifestation I70.203 ; Tinea unguium B35.1 ; Cramping of feet R25.2 ; Pain in left toe(s) M79.675 and Pain in right toe(s) M79.[address] [address] 08/26/2023 Huma Ledbetter [address] [address] 09/21/2023 Huma Ledbetter Assessments Encounter Date Diagnosis (ICD Code) Assessment Notes Treatment Notes Treatment Clinical Notes Section Notes 09/21/2023 Atherosclerosis of caddo artery of both lower extremities, with unspecified [...]
--- OUTSIDE RECORDS SUMMARY | 2024-06-25 14:41 | XMS_ITS ---
Author Organization [facility] Address [address] [place] [address] Care Team Providers Care Heel Sprayer Name Role Phone Hasmukh CALLAWAY, Shannan Pretty Primary Care Provider Un available Huma Ledbetter Unavailable [phone] REASON FOR VISIT PCP Notes Entered Encounters Encounter Location Date Provider Diagnosis [address] [address] 08/26/2023 Huma Ledbetter Plan Of Treatment No Information Progress Notes * Tavares AHMADIDOB: [birth year] (78 yo M)Acc No.[id number]:08/26/2023 Patient:?Tavares Ahmadi :1945???Age:78 Y???Sex:Male Address:[address] [place] [address], [address] * true * Date:? Generated for Printi ng/Faheribertog/eTransmitting on:?06/25/2024 02:41 PM EDT
--- OUTSIDE RECORDS SUMMARY | 2024-06-25 14:41 | XMS_ITS ---
Author Organization [facility] [place] Address [address] [place] [address] Care Team Providers Care Glass Etcher Helper Name Role Phone Hasmukh CALLAWAY, Shannan Pretty Primary Care Provider Un available Huma Ledbetter Unavailable [phone] Allergies No Known Allergies REASON FOR VISIT [...] W/U Status Risk Notes Problem Atherosclerosis of [place] artery of both lower extremities, with unspecified presence of clinical manifestation (I70.203) Active confirmed Vital Signs Height 5 ft 10 in in 09/21/2023 Weight 150 lbs lbs 09/21/2023 BMI 21.52 kg/m2 09/21/2023 Blood pressure systolic 132 mm Hg 09/21/19 24 Blood pressure diastolic 80 mm Hg 024 Encounters Encounter Location Date Provider Diagnosis [facility] [place] [address] [place] [address] 09/21/2023 Huma Ledbetter Atherosclerosis of [place] artery of both lower extremities, with unspecified presence of clinical manifestation I70.203 ; Tinea unguium B35.1 ; Cramping of feet R25.2 ; Pain in left toe(s) M79.675 and Pain in right toe(s) M79.674 Assessments Encounter Date Diagnosis (ICD Code) Assessment Notes Treatment Notes Treatment Clinical Notes Section Notes 09/21/2023 Atherosclerosis of absentee-shawnee artery of both lower extremities, with unspecified [...] as necessary. Patient chooses, no pharmaceutical tx (82418) Keratoma Treatment Parring or Cutting o f Benign Hyperkeratotic Lesion(s) 09436 ( 1 Lesion ) - The Benign hyperkeratotic lesion, as described above was pared, and/or cut utilizing a sterile 15 blade, tissue nippers, and/or dremel Progress Notes * Ced AHMADI: [birth year] (78 yo M)Acc No.[id number]:09/21/2023 Progress Notes Patient:?Tavares Ahmadi Provider:?Huma Ledbetter DPM :1945???Age:78 Y???Sex:Male Lan e:09/21/2023 Address:[address] [place], [place] [id number] Pcp:Lisandro Viera Subjective: * Chief Complaints: * [...] * Medical History:? * Surgical History:?ankle surg jerrica status post herniorrhaphy hernia * Hospitalization/Major Diagno [...] status: single, . 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 * Medications:?TakingMarijuana approved for medical use [...] and reconciled with the patient * Allergies:?N.K.D.A.yes[Aller magen Verified] Objective: * Vitals:?Ht: 5 ft 10 [...] and time.? Assessment: * Assessment: 1.?Atherosclerosis of absent[place]-shawnee artery of both lower extremities, with unspecified [...] as necessary. Patient chooses, no pharmaceutical tx (90802).?Keratoma Treatment:?Parring or Cutting of Benign Hyperkeratotic Lesion(s)?68770 ( 1 Lesion ) - The Benign [...] * Provider:?Huma Ledbetter DPM Date:? Generated for Dineshviktoriya duran/Marta/eTransmitting on:?06/25/2024 02:41 PM EDT History and Physical Notes * HPI [...]
--- OUTSIDE RECORDS SUMMARY | 2024-06-25 14:42 | XMS_ITS ---
Author Organization [facility] Address [address] [place] [address] Care Team Providers Care Ophthalmic Assistant Name Role Phone Hasmukh CALLAWAY, Shannan Pretty Primary Care Provider Un available Huma Ledbetter [phone] REASON FOR VISIT NEEV Encounters Encounter Location Date Provider Diagnosis [address] [address] 09/21/2023 Huma Ledbetter Plan Of Treatment No Information Progress Notes * Tavares AHMADIDOB: [birth year] (78 yo M)Acc No.[id number]:09/21/2023 Patient:?Tavares Ahmadi :1945???Age:78 Y???Sex:Male Address:[address] [place] [address], [address] * true * Date:? Generated for Printi ng/Faheribertog/eTransmitting on:?06/25/2024 02:41 PM EDT
== END 2024-06-25 14:27 | disposition home or self-care (01) ==
LOC: HO.HMCC 13:17
PROVIDERS: PCP Internal Medicine; Visit Provider Internal Medicine
DX: D50.9 Iron deficiency anemia, unspecified (principal); Z87.898 Personal history of other specified conditions; R97.20 Elevated prostate specific antigen [PSA]; Z28.21 Immunization not carried out because of patient refusal; Z53.20 Procedure and treatment not carried out because of patient's decision for unspecified reasons; J44.9 Chronic obstructive pulmonary disease, unspecified; I10 Essential (primary) hypertension; Z00.01 Encounter for general adult medical examination with abnormal findings; I77.9 Disorder of arteries and arterioles, unspecified

== ENCOUNTER → 2024-06-25 13:16 | Outpatient (BNVA) | payer SELFPAY | PROVIDERS: PCP Internal Medicine; Visit Provider Internal Medicine | DX: Z00.01 Encounter for general adult medical examination with abnormal findings (principal); D50.9 Iron deficiency anemia, unspecified; R97.20 Elevated prostate specific antigen [PSA]; J44.9 Chronic obstructive pulmonary disease, unspecified; I10 Essential (primary) hypertension; I77.9 Disorder of arteries and arterioles, unspecified; Z79.899 Other long term (current) drug therapy; Z87.898 Personal history of other specified conditions; Z28.21 Immunization not carried out because of patient refusal | CPT/HCPCS: 96127; 99397 ==

== ENCOUNTER → 2024-07-24 13:25 | Outpatient (BNV) | payer SELFPAY | PROVIDERS: PCP Internal Medicine; Referring Provider Internal Medicine; Visit Provider Internal Medicine | DX: D64.9 Anemia, unspecified (principal) | CPT/HCPCS: 99204; 99214; G2211 ==

== ENCOUNTER 2024-12-20 07:49 | Outpatient (REF) | payer SELFPAY ==
--- OUTSIDE RECORDS SUMMARY | 2024-12-20 07:54 | XMS_ITS | Patient Health Record ---
Author Organization [facility] Address [address] [place] [address] Care Team Providers Care Internet Consultant Name Role Phone Hasmukh CALLAWAY, Shannan Pretty Primary Care Provider Un available TobiasMarcelino gomesen Unavailable [phone] Allergies No Known Allergies Reason For Referral [...] atherosclerosis of arteries of lower limbs (disorder) ([id number] ) Atherosclerosis of [place] artery of both lower extremities, with unspecified presence of clinical manifestation (I70.203) Active confirmed Plan Of Treatment No Information Medical (General) [...]
--- OUTSIDE RECORDS SUMMARY | 2024-12-20 07:54 | XMS_ITS | Patient Health Record ---
Author Organization [facility] Address [address] [place] [address] Care Team Providers Care Migratory Worker Name Role Phone Ríos Carroll Unavailable [phone] Reason For Referral No Information Plan Of Treatment No Information
[2024-12-20 10:15] LABS: MANUAL DIFF FLAG NO
[2024-12-20 10:26] LABS: Hematocrit 36.2 % (42.0-52.0); Hemoglobin 10.8 g/dl (14.0-18.0); Imm Gran Abs Auto 0.03 X10*3/uL (0.00-0.03); Imm Gran Pct Auto 0.4 % (0.0-0.4); Lymphocytes Absolute Auto 2.2 X10*3/uL (1.2-4.9); Mean Corpuscular HGB Conc 29.8 g/dl (31.0-36.0); Mean Corpuscular Hemoglobin 26.2 pg (27.0-33.0); Mean Corpuscular Volume 87.9 fL (80.0-98.0); NRBC Abs Auto 0.000 X10*3/uL (0.0-0.012); NRBC Pct Auto 0.0 /100WBC (0.0-0.2); Platelet Count 328 X10*3/uL (160-400); Red Blood Count 4.12 X10*6/uL (4.60-5.80); White Blood Count 8.6 X10*3/uL (4.8-10.8)
[2024-12-20 10:44] LABS: Appearance Urine Clear; Glucose Urine UA Negative (Negative); PH 6.0 (5.0-9.0); Specific Gravity - Urine 1.020 (1.005-1.025); UMIC TRIGGER UA YES
[2024-12-20 11:00] LABS: Anion Gap 12 (12-20); Blood Urea Nitrogen 14 mg/dL (9-16); Calcium 9.1 mg/dL (8.4-10.2); Carbon Dioxide 28 mmol/L (22-29); Chloride 102 mmol/L (96-108); Estimated Glomerular Filt Rate > 60; Potassium 5.2 mmol/L (3.3-5.1); Sodium 137 mmol/L (135-145)
[2024-12-20 11:25] LABS: Ferritin 12 ng/mL (20-250)
[2024-12-20 11:29] LABS: Folate 12.8 ng/mL (> or = 4.0); Vitamin B12 592 pg/mL (200-900)
[2024-12-20 11:49] LABS: Total Protein Urine Random 16 mg/dL (<12)
== END 2024-12-20 07:50 | disposition home or self-care (01) ==
LOC: HO.HMGCLDS 07:49
PROVIDERS: Absent Provider Internal Medicine Hypertension Specialist; PCP Internal Medicine; Visit Provider Internal Medicine
DX: I12.9 Hypertensive chronic kidney disease with stage 1 through stage 4 chronic kidney disease, or unspecified chronic kidney disease (principal); N18.30 Chronic kidney disease, stage 3 unspecified; D63.1 Anemia in chronic kidney disease; D50.9 Iron deficiency anemia, unspecified
CPT/HCPCS: 36415; 80048; 81001; 82570; 82607; 82728; 82746; 84156; 84425; 85025

== ENCOUNTER 2024-12-24 09:25 | Outpatient (AMB) | payer SELFPAY ==
--- NOTE | 2024-12-24 09:52 | MHC.PC.OV ---
Vital Signs 12/24/24 10:02 Height 5 ft 9 in Weight 150 lb BMI 22.1 BP 132/70 Blood Pressure Location Rt brachial Position Sitting Respiration 17 Pulse 101 H Pulse Source Pulse Oximeter Temp 97.8 F Temp Source Oral Pulse Oximetry (%) 100 Oxygen Delivery Method Room Air Intake Visit Reasons: 6m follow up-NO insurance Intake Note: Pt is here today for his 6mo. f/u Allergies pollen Allergy (Uncoded 12/24/24 10:25) Sneezing Medication List - Last Reconciled 12/24/24 by Shannan Noe MD albuterol sulfate 90 mcg/actuation (ProAir RespiClick) 2 inhalations inhalation Q6H PRN aspirin (Adult Low Dose Aspirin) 81 mg PO DAILY budesonide-formoterol 160-4.5 mcg/actuation (Symbicort) 1 puff inhalation ONCE [cannabis orally; ] ferrous sulfate 325 mg PO DAILY hydroxyzine HCl 10 mg PO TID PRN lisinopril 20 mg PO DAILY magnesium 500 mg PO DAILY nicotine (polacrilex) (Nicorette) 4 mg buccal Q2H Tobacco use date assessed: 12/24/24 Fall risk assessment: 1 Fall in past year Last assessed Fall Risk: 12/24/24 Dental Screening Dental Screen Date: 12/24/24 Did you have a dental visit in the last 12 months?: Yes Did you have a dental problem in the last 6 months where you did not have access to dental care?: No Was dental information given to patient?: Patient has dentist HPI 6m follow up-NO insurance HPI Details The patient is a 79-year-old male presenting for follow-up on abnormal laboratory results and management of constipation and leg cramps. He has a history of anemia, which is persistently trending down. Complains of feeling tired, shortness of breath on exertion, feeling cold, and lightheadedness with sudden changes in position. Laboratory results reviewed from November showed low iron stores . The patient reports chronic constipation and is unsure if he has hemorrhoids. He experiences lower abdominal cramps and describes his stool as alternating between watery and pellet-like, with passage of bright red blood. He has frequent bowel movements , sometimes occuring 3-4 times a day. Regarding his diet, the patient does not eat three meals a day, stating he consumes a lot of soup but rarely eats meat. He denies smoking, but consumes one or two beers per week. Recent labs showed normal liver enzymes, fasting glucose, cholesterol, B12, and folic acid levels, but a slightly high potassium level. Kidney function is normal . The patient also complains of leg cramps,tried [id number] medications for muscle cramps , which has not helped . He has a follow-up appointment with his kidney doctor tomorrow. [facility], [facility] Medical History (Updated 12/29/24 @ 23:02 by Shannan Noe MD) Iron deficiency anemia Peripheral arterial occlusive disease History of alcohol use disorder Acquired deformity of toenail Decreased pedal pulses Leg cramps Pain of foot and toes Elevated fasting glucose Hyperlipidemia Frequent falls Elevated serum creatinine Right bundle branch block (RBBB) determined by electrocardiography Vitamin D deficiency Hx of smoking History of alcohol abuse Elevated PSA COVID-19 vaccination refused Immunization refused Colonoscopy refused COPD (chronic obstructive pulmonary disease) Essential hypertension Surgical History Status post herniorrhaphy History of ankle surgery Family History Father HTN (hypertension) Diabetes mellitus with neuropathy Mother No problems noted. Sister No problems noted. Social History Household Members: Other Housing: House Are you a primary doggy daycare activities director to a significant other at home: No Do you presently have visiting nurse or other home services: No Alcohol intake: current Alcohol intake frequency: a few times a week Alcohol type: beer Patient Tobacco Use Status: Former Tobacco user Years Smoked: 40 yrs e-Cigarette/Vaping Use: Never Used Substance Use Type: Marijuana service: No Current occupational status: retired Cognitive needs: No Hearing needs: No Vision needs: Yes Questionnaire PHQ-9 Over the last 2 weeks, how often have you been bothered by any of the following problems? 1. Little interest or pleasure in doing things: not at all 2. Feeling down, depressed, or hopeless: not at all 3. Trouble falling or staying asleep, or sleeping too much: not at all 4. Feeling tired or having little energy: not at all 5. Poor appetite or overeating: not at all 6. Feeling bad about yourself - or that you are a failure or have let yourself or your family down: not at all 7. Trouble concentrating on things, such as reading the newspaper or watching television: not at all 8. Moving or speaking so slowly that other people could have noticed. Or the opposite - being so fidgety or restless that you have been moving around a lot more than usual: not at all 9. Thoughts that you would be better off or of hurting yourself in some way: not at all Total score: 0 Depression Screening Interpretation: Negative Depression Screening Done: Yes Source: Developed by Drs. Carroll Silverman, Hanane Choudhary, Te Stauffer and colleagues, with an educational oscar from [employer]. Thrive Questionnaire Date Thrive assessed: 12/18/24 I am a: Patient What is your living situation today?: I have a steady place to live Within the past 12 months, did the food you bought not last and you didn't have the money to get more?: Never true Within the past 12 months, did you worry whether your food would run out before you got money to buy more?: Never true Do you have trouble paying for medicines?: No Do you have trouble getting transportation to medical appointments?: No Do you have trouble paying your heating and electricity bill?: No Do you have trouble taking care of your child, family member or friend?: No Do you have trouble with day-to-day activities such as bathing, preparing meals, shopping, managing finances, etc.?: No Are you currently unemployed and looking for a job?: No Are you interested in more education?: Yes Please select the resources that you would like help with: None Currently or been in a relationship where the following occur: No concerns reported THRIVE Score: 0 AUDIT C Alcohol Use Questionnaire (AUDIT-C) 1. How often do you have a drink containing alcohol?: 2-3 times a week 2. How many drinks containing alcohol do you have on a typical day when you are drinking?: 1 or 2 3. How often do you have six or more drinks on one occasion?: Never Total Score: 3 ROXANA-7 AMB Questionnaire ROXANA-7 Date ROXANA - 7 assessed: 05/05/25 Feeling nervous, anxious, or on edge: 0 = Not at all Not being able to stop or control worryin = Not at all Worrying too much about different things: 0 = Not at all Trouble relaxin = Not at all Being so restless that it is hard to sit still: 0 = Not at all Becoming easily annoyed or irritable: 1 = Several days Feeling afraid as if something awful might happen: 0 = Not at all Total ROXANA-7 score (0-4 normal; 5-9 mild; 10-14 moderate; 15-21 severe): 1 Source: Developed by Drs. Carroll Silverman, Hanane Choudhary, Te Stauffer and colleagues, with an educational oscar from [employer]. Review of Systems Const Reports as per HPI Eyes Reports no additional complaints ENT Denies odynophagia Card Denies chest pain, Denies irregular heart rhythm and Denies leg edema Resp Reports no additional complaints GI Reports abdominal pain (Lower abdominal area), Denies melena, Reports bloating, Reports hematochezia, Reports change in bowel habits, Reports change in stool character (Either having watery stool or pellet like stool, sometimes 3 4 times a day ), Reports excessive flatus, Denies heartburn, Denies nausea, Denies odynophagia and Denies vomiting Denies difficulty urinating, Denies urinary frequency and Denies urinary hesitancy Musc Reports muscle cramps (when sitting or at night) Neuro Reports no additional complaints Psych Reports no additional complaints Endo Reports no additional complaints Adams/Lymph Reports no additional complaints Aller/Immun Reports no additional complaints Physical exam (Primary Care) Vital Signs: Last Vital Signs Temp 97.8 F 12/24/24 10:02 Pulse 101 H 12/24/24 10:02 Resp 17 12/24/24 10:02 BP 132/70 12/24/24 10:02 Pulse Ox 100 12/24/24 10:02 Oxygen Delivery Method Room Air 12/24/24 10:02 BMI result Body Mass Index 22.1 Tobacco/Smoking Status: Tobacco use Status Tobacco use date assessed 12/24/24 12/24/24 09:53 Patient Tobacco Use Status Former Tobacco user 12/24/24 09:53 e-Cigarette/Vaping Use Never Used 12/24/24 09:53 PHQ-9: PHQ-9 Score PHQ-9: Total score 0 11/03/25 10:48 Depression Screening Interpretation: Negative Thrive Assessment: Date of Thrive Assessment Date Thrive assessed 12/18/24 12/24/24 09:53 Currently or been in a relationship where the following occur: No concerns reported Results Reviewed Results Reviewed: Name: Tavares Ahmadi Age/Sex: 79/M : 1945 Unit#: [id number] Attend Dr: Shannan Noe MD Re12/20/24 Status: DEP [facility]F [facility] Disch: SPEC : [id number] JAKE: 12/20/24 STATUS: COMP REQ : [id number] RECD: 12/20/[address] [facility] [address]: Brad Jain MD COMP: 12/20/24 ENTERED: 12/20/[address]: Shannan Noe MD ORDERED: CBC Auto Diff Test Result Flag Reference WBC 8.6 4.8-10.8 X10*3/uL RBC 4.12 L 4.60-5.80 X10*6/uL HGB 10.8 L 14.0-18.0 g/dl HCT 36.2 L 42.0-52.0 % MCV 87.9 80.0-98.0 fL MCH 26.2 L 27.0-33.0 pg MCHC 29.8 L 31.0-36.0 g/dl RDW 14.1 11.0-16.0 % PLT 328 # 160-400 X10*3/uL MPV 9.2 L 9.4-12.4 fL Neut Pct Auto 60.2 45-73 % ImGran Pct Auto 0.4 0.0-0.4 % Lymp Pct Auto 25.5 20-40 % Stearns Pct Auto 8.8 2-11 % Eos Pct Auto 4.6 H 0-4 % Baso Pct Auto 0.5 0-2 % NRBC Pct Auto 0.0 0.0-0.2 /100WBC ANC Neut Abs # 5.2 2.0-8.3 x10*3/uL ImGran Abs Auto 0.03 0.00-0.03 X10*3/uL Lymph Abs Auto 2.2 1.2-4.9 X10*3/uL Stearns Abs Auto 0.8 0.1-1.2 X10*3/uL Eos Abs Auto 0.4 0.0-0.4 X10*3/uL Baso Abs Auto 0.0 0.0-0.2 X10*3/uL NRBC Abs Auto 0.000 0.0-0.012 X10*3/uL Name: Tavares Ahmadi Age/Sex: 79/M : 1945 Unit#: [id number] Attend Dr: Shannan Noe MD Re12/20/24 Status: DEP REF Location: [facility] Disch: SPEC : [id number] JAKE: 12/20/24 STATUS: COMP REQ : [id number] RECD: 12/20/[address]: Brad Jain MD COMP: 12/20/24 ENTERED: 12/20/[address] [facility] [address]: Shannan Noe MD ORDERED: BMP Test Result Flag Reference Sodium 137 135-145 mmol/L Potassium 5.2 # H 3.3-5.1 mmol/L CL 102 96-108 mmol/L CO2 28 22-29 mmol/L Gap 12 12-20 BUN 14 9-16 mg/dL Creat 1.08 0.5-1.4 mg/dL eGFR > 60 Chronic Kidney Disease: Estimated GFR < 60 mL/min/1.73m2 Severe Kidney Disease: Estimated GFR < 15 mL/min/1.73m2 Glucose, Random 104 60-115 mg/dL CA 9.1 8.4-10.2 mg/dL Coding Level of Care Code Est Pt Level 4 (00169) Complex EM visit Add On G2211 Diagnoses Iron deficiency anemia, unspecified iron deficiency anemia type D50.9 Iron deficiency anemia type: unspecified iron deficiency Altered bowel habits R19.4 Bright red blood per rectum K62.5 Immunization refused Z28.21 Stage 3 chronic kidney disease, unspecified whether stage 3a or 3b CKD N18.30 Chronic kidney disease stage 3 subtype: unspecified whether 3a or 3b Poor nutrition E63.9 Assessment & Plan Assessment & Plan (1) Iron deficiency anemia: Code(s): D50.9 - Iron deficiency anemia, unspecified Category: Medical Qualifiers: Iron deficiency anemia type: unspecified iron deficiency Qualified Code(s): D50.9 - Iron deficiency anemia, unspecified Plan: Labs low hemoglobin and low iron stores. The etiology is most likely a gastrointestinal bleed, given his report of hematochezia. Referred for colonoscopy to investigate the source of bleeding. A prescription for iron tablets will be refilled, with counseling that iron can worsen constipation. Advised to try taking some take as needed for constipation (2) Altered bowel habits: Code(s): R19.4 - Change in bowel habit Plan: Referred to GI for screening colonoscopy (3) Bright red blood per rectum: Code(s): K62.5 - Hemorrhage of anus and rectum Plan: Referred to GI for further evaluation (4) Immunization refused: Comment: for flu , pneumonia vaccine Code(s): Z28.21 - Immunization not carried out because of patient refusal Category: Medical Plan: Declines getting any vaccines (5) CKD (chronic kidney disease) stage 3, GFR 30-59 ml/min: Code(s): N18.30 - Chronic kidney disease, stage 3 unspecified Category: Medical Qualifiers: Chronic kidney disease stage 3 subtype: unspecified whether 3a or 3b Qualified Code(s): N18.30 - Chronic kidney disease, stage 3 unspecified Plan: Currently followed by nephrology , has appointment for follow-up tomorrow (6) Poor nutrition: Code(s): E63.9 - Nutritional deficiency, unspecified Plan: 4. Poor Nutrition The patient's diet lacks sufficient nutrients, as he primarily consumes soup and rarely eats meat. This may contribute to his anemia. The plan includes advising the patient to improve his nutritional intake for better overall health. Orders: Referrals Gastroenterology Referral D50.9 - Iron deficiency anemia, unspecified, K62.5 - Hemorrhage of anus and rectum, R19.4 - Change in bowel habit, Z12.11 - Encounter for screening for malignant neoplasm of colon Medications: New sennosides-docusate sodium 8.6-50 mg (Senokot-S) 1 tab-cap PO BEDTIME PRN 30 tabs 1RF constipation Refilled ferrous sulfate 325 mg PO DAILY 90 tabs 1RF D50.9 - Iron deficiency anemia, unspecified
[2024-12-24 10:02] VITALS: BP 132/70; PULSE 101; RESP 17; TEMP 36.6; O2SAT 100; BMI 22.1
--- OUTSIDE RECORDS SUMMARY | 2024-12-24 10:35 | XMS_ITS | Patient Health Record ---
Author Organization [facility] Address [address] [place] [address] Care Team Providers Care Laborer Adjustable Steel Joist Name Role Phone Ríos Carroll Unavailable [phone] Reason For Referral No Information Plan Of Treatment No Information
--- OUTSIDE RECORDS SUMMARY | 2024-12-24 10:35 | XMS_ITS | Patient Health Record ---
[facility] Organization [facility] Address [address] [place] [address] Care Team Providers Care Automation Qa Analyst Name Role Phone Hasmukh CALLAWAY, Shannan Pretty Primary Care Provider Un available TobiasMarcelino gomesen Unavailable [phone] Allergies No Known Allergies Reason For Referral [...] atherosclerosis of arteries of lower limbs (disorder) ([id number] ) Atherosclerosis of [place] artery of both lower extremities, with unspecified [...]
== END 2024-12-24 10:50 | disposition home or self-care (01) ==
LOC: HO.HMCC 09:26
PROVIDERS: PCP Internal Medicine; Visit Provider Internal Medicine
DX: D50.9 Iron deficiency anemia, unspecified (principal); R19.4 Change in bowel habit; K62.5 Hemorrhage of anus and rectum; N18.30 Chronic kidney disease, stage 3 unspecified; E63.9 Nutritional deficiency, unspecified

== ENCOUNTER → 2024-12-24 09:25 | Outpatient (BNVA) | payer SELFPAY | PROVIDERS: PCP Internal Medicine; Visit Provider Internal Medicine | DX: R25.2 Cramp and spasm (principal); D64.9 Anemia, unspecified; K59.09 Other constipation; R10.30 Lower abdominal pain, unspecified; K62.5 Hemorrhage of anus and rectum; D50.9 Iron deficiency anemia, unspecified; N18.30 Chronic kidney disease, stage 3 unspecified; E63.9 Nutritional deficiency, unspecified; Z28.21 Immunization not carried out because of patient refusal | CPT/HCPCS: 96127; 99212 ==

== ENCOUNTER 2024-12-25 10:03 | Outpatient (AMB) | payer SELFPAY ==
[2024-12-25 10:06] VITALS: BP 132/62; BMI 22.3
--- NOTE | 2024-12-25 10:06 | HO.NEPHOV_ITS ---
Vital Signs 12/25/24 10:06 Height 5 ft 9 in Weight 151 lb BMI 22.3 BP 132/62 Blood Pressure Location Lt brachial Position Sitting Intake Visit Reasons: CKD Fish Icer Required: No Accompanied by: Self / Same As Patient Allergies pollen Allergy (Uncoded 12/24/24 10:25) Sneezing Medication List - Last Reconciled 12/25/24 by Brad Jain MD albuterol sulfate 90 mcg/actuation (ProAir RespiClick) 2 inhalations inhalation Q6H PRN aspirin (Adult Low Dose Aspirin) 81 mg PO DAILY budesonide-formoterol 160-4.5 mcg/actuation (Symbicort) 1 puff inhalation ONCE [cannabis orally; ] ferrous sulfate 325 mg PO DAILY hydroxyzine HCl 10 mg PO TID PRN lisinopril 20 mg PO DAILY magnesium 500 mg PO DAILY nicotine (polacrilex) (Nicorette) 4 mg buccal Q2H sennosides-docusate sodium 8.6-50 mg (Senokot-S) 1 tab-cap PO BEDTIME PRN HPI Comments Details: Elderly man with a h/o HTN referred for Elevated serum creatinine In Feb 2022, Creatinine was 1.1 and currently at 1.46 with eGFR of 47 ml/mt He has been on Lisinopril 20 mg QD h/o Significant alcohol intake for many years. Stopped about 20 days ago h/o Heavy smoking for 40 years; Quit 15 yrs ago Denies any specific complaints today 12/02/23 Doing well Has cut back on Beer Seen by and underwent USG-Diagnosed with PVD Has follow up in few months 12/25/24 The patient is a 79-year-old male with HTN and CKD Now with constipation, anemia, and hyperkalemia The patient reports experiencing constipation, which was discussed with his primary care physician, He has been prescribed Senna for relief but has not yet started the medication. Anemia was noted, and the patient has been prescribed iron tablets - yet to start The patient's potassium levels were found to be slightly elevated at 5.2 mmol/L, which is a new finding as previous levels were normal. He consumes one to two bananas daily and occasionally eats peanut butter, which may contribute to the elevated potassium levels. [facility] Medical History (Updated 12/24/24 @ 10:49 by Shannan Noe MD) Iron deficiency anemia Peripheral arterial occlusive disease Hypochromic anemia History of alcohol use disorder Acquired deformity of toenail Decreased pedal pulses Leg cramps Pain of foot and toes Elevated fasting glucose Hyperlipidemia Frequent falls Elevated serum creatinine Right bundle branch block (RBBB) determined by electrocardiography Vitamin D deficiency Hx of smoking History of alcohol abuse Macrocytosis without anemia Elevated PSA COVID-19 vaccination refused Immunization refused Colonoscopy refused COPD (chronic obstructive pulmonary disease) Essential hypertension Surgical History Status post herniorrhaphy History of ankle surgery Family History Father HTN (hypertension) Diabetes mellitus with neuropathy Mother No problems noted. Sister No problems noted. Social History Household Members: Other Housing: House Are you a primary day care director to a significant other at home: No Do you presently have visiting nurse or other home services: No Alcohol intake: current Alcohol intake frequency: a few times a week Alcohol type: beer Patient Tobacco Use Status: Former Tobacco user Years Smoked: 40 yrs e-Cigarette/Vaping Use: Never Used Substance Use Type: Marijuana service: No Current occupational status: retired Cognitive needs: No Hearing needs: No Vision needs: Yes Physical Exam Vital Signs: Last Vital Signs BP 132/62 12/25/24 10:06 BMI result Body Mass Index 22.3 Comfortable Neck supple no JVD. Lungs entry equal no rales. Heart S1-S2 heard no gallop or rub. Abdomen soft nontender. Neuro alert awake oriented. No asterixis. Extremities no edema. Results Reviewed Nephrology Results: Hgb, (14.0-18.0) 10.8 g/dl L 12/20/24 WBC, (4.8-10.8) 8.6 X10*3/uL 12/20/24 Plt Count, (160-400) 328 X10*3/uL Δ 12/20/24 Sodium, (135-145) 137 mmol/L 12/20/24 Potassium, (3.3-5.1) 5.2 mmol/L H Δ 12/20/24 Chloride, (96-108) 102 mmol/L 12/20/24 Carbon Dioxide, (22-29) 28 mmol/L 12/20/24 BUN, (9-16) 14 mg/dL 12/20/24 Creatinine, (0.5-1.4) 1.08 mg/dL 12/20/24 Calcium, (8.4-10.2) 9.1 mg/dL 12/20/24 Urine Protein, (Neg-Trace) Negative mg/dL 12/20/24 Urine Creatinine 190.19 mg/dL 12/20/24 Renal US 05/02/23 Assessment & Plan Assessment & Plan (1) CKD (chronic kidney disease) stage 3, GFR 30-59 ml/min: Code(s): N18.30 - Chronic kidney disease, stage 3 unspecified Category: Medical (2) Essential hypertension: Code(s): I10 - Essential (primary) hypertension Category: Medical Plan Elderly man with age related decline in eGFR superimposed HIREN due to volume depletion - DDx includes prerenal causes including volume depletion/hypoperfusion Resolved urine studies are unremarkable Post renal causes - No obstructive uropathy based on USG Increase PO fluid Low salt diet Avoid nephrotoxins including NSAIDS Maintain BP < 130/80 and avoid hypotension Mild Hyperkalemia The patient is advised to reduce intake of high-potassium foods and will have a follow-up blood test in one week to reassess potassium levels. If K is persistently elevated, Lisinopril can be decreased by 50% or add Lokelma 5 gm PO 2 x week inaddition to low K diet Orders: Orders Basic Metabolic Panel 1 Year I10 - Essential (primary) hypertension, N18.30 - Chronic kidney disease, stage 3 unspecified Basic Metabolic Panel 1 Week N18.30 - Chronic kidney disease, stage 3 unspecified Complete Blood Count Auto Diff 1 Year I10 - Essential (primary) hypertension, N18.30 - Chronic kidney disease, stage 3 unspecified Coding Level of Care Code Est Pt Level 4 (33290) Diagnoses CKD (chronic kidney disease) stage 3, GFR 30-59 ml/min N18.30 Essential hypertension I10
--- OUTSIDE RECORDS SUMMARY | 2024-12-25 11:43 | XMS_ITS | Patient Health Record ---
Author Organization [facility] Address [address] [place] [address] Care Team Providers Care Panama Hat Hydraulic Press Operator Name Role Phone Ríos Carroll Unavailable [phone] Reason For Referral No Information Plan Of Treatment No Information
--- OUTSIDE RECORDS SUMMARY | 2024-12-25 11:43 | XMS_ITS | Patient Health Record ---
[facility] Address [address] [place] [address] Care Team Providers Care Branch Associate Teller Name Role Phone Hasmukh CALLAWAY, Shannan Pretty Primary Care Provider Un available TobiasMarcelino gomesen Unavailable [phone] Allergies No Known Allergies Reason For Referral [...] atherosclerosis of arteries of lower limbs (disorder) ([id number] ) Atherosclerosis of [place] artery of both lower extremities, with unspecified [...]
== END 2024-12-25 10:28 | disposition home or self-care (01) ==
LOC: HO.HKA 10:03
PROVIDERS: PCP Internal Medicine; Visit Provider Internal Medicine Hypertension Specialist
DX: N18.30 Chronic kidney disease, stage 3 unspecified (principal); I10 Essential (primary) hypertension
CPT/HCPCS: 99214

== ENCOUNTER → 2024-12-25 10:03 | Outpatient (BNVA) | payer SELFPAY | PROVIDERS: PCP Internal Medicine; Visit Provider Internal Medicine Hypertension Specialist | DX: I10 Essential (primary) hypertension (principal); N18.30 Chronic kidney disease, stage 3 unspecified | CPT/HCPCS: 99212 ==